=== PATIENT | male | born 1935 | race Caucasian/White ===

== ENCOUNTER 2016-12-28 21:52 | Outpatient (CLI) | payer MEDICARE, OTHER | END 2016-12-28 21:53 | disposition home or self-care (01) | DX: G47.33 Obstructive sleep apnea (adult) (pediatric) (principal); G47.61 Periodic limb movement disorder ==

== ENCOUNTER 2016-12-29 06:16 | Emergency (ER) | payer MEDICARE, OTHER ==
[2016-12-29] MEDS ORDERED: HYDROcod/ACETAM 5/325 MG TABLET PO STA (07:27)
[2016-12-29] MEDS ORDERED: HYDROcod/ACETAM 5/325 MG TABLET ONE (07:31)
== END 2016-12-29 08:20 | disposition home or self-care (01) ==
DX: S70.01XA Contusion of right hip, initial encounter (principal); W01.0XXA Fall on same level from slipping, tripping and stumbling without subsequent striking against object, initial encounter; Y92.000 Kitchen of unspecified non-institutional (private) residence as the place of occurrence of the external cause; E11.22 Type 2 diabetes mellitus with diabetic chronic kidney disease; I13.2 Hypertensive heart and chronic kidney disease with heart failure and with stage 5 chronic kidney disease, or end stage renal disease; N18.6 End stage renal disease; I50.9 Heart failure, unspecified; Z99.2 Dependence on renal dialysis; Z79.4 Long term (current) use of insulin; E03.9 Hypothyroidism, unspecified; G47.30 Sleep apnea, unspecified; Z95.2 Presence of prosthetic heart valve; Z95.1 Presence of aortocoronary bypass graft; Z87.891 Personal history of nicotine dependence; Z79.82 Long term (current) use of aspirin
CPT/HCPCS: 73502; 99283; 99284; A9270

== ENCOUNTER 2016-12-31 | Outpatient (CLI) | payer MEDICARE, OTHER | END 2016-12-31 02:29 | disposition critical access hospital (66) | DX: M25.551 Pain in right hip (principal) | CPT/HCPCS: A0425; A0429 ==

== ENCOUNTER 2016-12-31 02:40 | Emergency (ER) | payer MEDICARE, OTHER ==
[2016-12-31] MEDS ORDERED: HYDROcod/ACETAM 5/325 MG TABLET PO STA (07:04)
[2016-12-31] MEDS ORDERED: HYDROcod/ACETAM 5/325 MG TABLET ONE (07:08)
== END 2016-12-31 09:27 | disposition home or self-care (01) ==
DX: S72.111A Displaced fracture of greater trochanter of right femur, initial encounter for closed fracture (principal); Y92.000 Kitchen of unspecified non-institutional (private) residence as the place of occurrence of the external cause; W19.XXXA Unspecified fall, initial encounter; I11.0 Hypertensive heart disease with heart failure; I50.9 Heart failure, unspecified; E11.9 Type 2 diabetes mellitus without complications; Z79.82 Long term (current) use of aspirin; Z79.4 Long term (current) use of insulin; Z87.891 Personal history of nicotine dependence
CPT/HCPCS: 36415; 73502; 73700; 80053; 83690; 85025; 99283; 99284; A9270

== ENCOUNTER 2017-01-14 14:36 | Outpatient (CLI) | payer MEDICARE, OTHER | END 2017-01-14 14:37 | disposition home or self-care (01) | DX: G47.33 Obstructive sleep apnea (adult) (pediatric) (principal) | CPT/HCPCS: 99213; G0463 ==

== ENCOUNTER 2017-02-20 14:52 | Outpatient (CLI) | payer MEDICARE, OTHER | END 2017-02-20 14:53 | disposition critical access hospital (66) | DX: T42.4X4A Poisoning by benzodiazepines, undetermined, initial encounter (principal) | CPT/HCPCS: A0425; A0427 ==

== ENCOUNTER 2017-02-20 15:14 | Emergency (ER) | payer MEDICARE, OTHER ==
[2017-02-20] MEDS ORDERED: SODIUM CHLORIDE 0.9% 1,000 ML IV ONE (15:26)
== END 2017-02-20 20:15 | disposition home or self-care (01) ==
DX: G47.30 Sleep apnea, unspecified (principal); R53.83 Other fatigue; I11.0 Hypertensive heart disease with heart failure; I50.9 Heart failure, unspecified; E11.9 Type 2 diabetes mellitus without complications; Z79.4 Long term (current) use of insulin; Z95.1 Presence of aortocoronary bypass graft; Z95.2 Presence of prosthetic heart valve; Z79.82 Long term (current) use of aspirin; Z99.2 Dependence on renal dialysis; Z87.891 Personal history of nicotine dependence

== ENCOUNTER 2017-03-11 13:44 | Outpatient (CLI) | payer MEDICARE, OTHER | END 2017-03-11 13:45 | disposition home or self-care (01) | DX: G47.33 Obstructive sleep apnea (adult) (pediatric) (principal); F03.90 Unspecified dementia, unspecified severity, without behavioral disturbance, psychotic disturbance, mood disturbance, and anxiety | CPT/HCPCS: 99214; G0463 ==

== ENCOUNTER 2017-04-08 13:53 | Outpatient (CLI) | payer MEDICARE, OTHER | END 2017-04-08 13:54 | disposition home or self-care (01) | LOC: SC 13:53 | PROVIDERS: ATTEND Specialist | DX: G47.33 Obstructive sleep apnea (adult) (pediatric) (principal); F03.90 Unspecified dementia, unspecified severity, without behavioral disturbance, psychotic disturbance, mood disturbance, and anxiety; H91.90 Unspecified hearing loss, unspecified ear | CPT/HCPCS: 99214; G0463; 99212 ==

== ENCOUNTER 2017-04-24 14:56 | Outpatient (CLI) | payer MEDICARE, OTHER | END 2017-04-24 14:57 | disposition critical access hospital (66) | LOC: EMS 14:56 | PROVIDERS: ATTEND Surgery | DX: R41.0 Disorientation, unspecified (principal); R53.1 Weakness | CPT/HCPCS: A0425; A0427 ==

== ENCOUNTER 2017-04-24 15:16 | Emergency (ER) | payer MEDICARE, OTHER ==
--- NOTE | 2017-04-24 15:48 | ED Physician Documentation ---
PD HPI ALTERED MENTAL STATUS - Stated complaint Stated Complaint: WEAKNESS/ ALOC - Chief complaint Chief Complaint: Neuro - History obtained from History obtained from: Patient, Family, EMS - History of Present Illness Timing - onset: Today (he had dialysis today and then was weak and less interactive. EMS called to help him up and found BS low at 71. He perked up some with glucose. BP transiently low as well, but improved with some fluids. says he has been slightly more confused and weaker for several days. No noted injuries. Did not eat much today prior to dialysis but did get regular medications.) Timing - details: Abrupt onset, Now resolved (improved alertness enroute, but still feeling generally weak.) Quality / character: Less responsive, Confused Associated symptoms: General weakness. No: Fever, Headache, Dyspnea, Cough, NVD , Urinary sx, Focal weakness Contributing factors: Diabetic. No: Anticoagulated, Recent med change, Recent illness, Recent injury Basline status: Alert and oriented X 3, Walker Similar symptoms before: Diagnosis (with infections) Review of Systems Constitutional: denies: Fever, Chills Throat: denies: Sore throat Cardiac: denies: Chest pain / pressure Respiratory: denies: Cough GI: denies: Abdominal Pain, Nausea, Vomiting, Diarrhea : denies: Dysuria (produces small amount of urine, per ) Skin: denies: Rash, Lesions, Laceration (s) Musculoskeletal: reports: Extremity swelling (mild edema chronically) Neurologic: reports: Generalized weakness. denies: Focal weakness, Numbness, Near syncope Endocrine: reports: Easy bruising / bleeding PD PAST MEDICAL HISTORY - Past Medical History Cardiovascular: Congestive heart failure, Hypertension, Valve disorder Respiratory: Sleep apnea Neuro: None Endocrine/Autoimmune: Type 1 diabetes, HyPOthyroidism GI: Cholelithiasis : Frequency Musculoskeletal: Chronic back pain Other Past Medical History: restless leg syndrome - Past Surgical History Past Surgical History: Yes General: Cholecystectomy Ortho: Knee replacement Cardiovascular: CABG, Valve replacement, Fempop bypass - Present Medications Home Medications: Ambulatory Orders Medication Instructions Recorded Confirmed Aspirin [Adult Low Dose Aspirin EC] 81 mg PO PRN PRN 08/29/16 04/24/17 Finasteride 5 mg PO DAILY 08/29/16 04/24/17 Hydrocodone/Acetaminophen 1 tab PO Q6H PRN 08/29/16 04/24/17 [Hydrocodon-Acetaminoph 7.5-325] Insulin Glargine,Hum.rec.anlog 40 units SUBQ DAILY 08/29/16 04/24/17 [Lantus] Levothyroxine Sodium [Levoxyl] 175 mcg PO QDAC 08/29/16 04/24/17 Lorazepam 1 mg PO PRN PRN 08/29/16 04/24/17 Oxybutynin Chloride [Ditropan Xl] 5 mg PO DAILY 08/29/16 04/24/17 Pramipexole Di-HCl [Mirapex] 1 mg PO BID 08/29/16 04/24/17 Tramadol HCl 50 mg PO TID PRN 08/29/16 04/24/17 Magnesium 250 mg PO DAILY 09/09/16 04/24/17 Torsemide 40 mg PO DAILY 09/09/16 04/24/17 Metoprolol Succinate 12.5 mg PO BID 02/20/17 04/24/17 Insulin Aspart [NovoLOG] 2 - 10 unit SUBQ PRN PRN 04/24/17 04/24/17 Tamsulosin [Flomax] 0.4 mg PO DAILY 04/24/17 04/24/17 - Allergies Allergies/Adverse Reactions: Allergies Allergy/AdvReac Type Severity Reaction Status Date / Time No Known Drug Allergies Allergy Verified 02/20/17 15:43 - Social History Does the pt smoke?: No Smoking Status: Former smoker Does the pt drink ETOH?: No Does the pt have substance abuse?: No - Family History Family history: reports: Non contributory - Immunizations Immunizations are current?: Yes - POLST Patient has POLST: Yes PD ED PE NORMAL - Vitals Vital signs reviewed: Yes - General General: Alert and oriented X 3, No acute distress, Well developed/nourished, Other (slightly anxious/restless) - HEENT HEENT: Moist mucous membranes, Pharynx benign - Neck Neck: Supple, no meningeal sign, No adenopathy - Cardiac Cardiac: RRR, No murmur - Respiratory Respiratory: Clear bilaterally, Other (dialysis Broviac right chestwall without signs of skin infection) - Abdomen Abdomen: Normal bowel sounds, Soft, Non tender - Derm Derm: Normal color, Warm and dry - Extremities Extremities: No calf tenderness / cord, Other (1+ edema in both legs) - Neuro Neuro: No motor deficit, Normal speech Results - Vitals Vitals: Vital Signs - 24 hr 04/24/17 04/24/17 04/24/17 15:20 17:22 18:37 Temperature 36.1 C L 36.3 C L Heart Rate 69 80 78 Respiratory 18 20 16 Rate Blood Pressure 124/73 135/97 H 138/62 H O2 Saturation 96 96 96 04/24/17 19:47 Temperature 36.9 C Heart Rate 73 Respiratory 16 Rate Blood Pressure 115/70 O2 Saturation 95 Oxygen O2 Source [With Activity] 2L O2 via NC O2 Source [Without Activity] 2L O2 via NC O2 Source Room air - Labs Labs: Laboratory Tests 04/24/17 04/24/17 04/24/17 15:45 15:45 15:45 WBC 4.2 L RBC 3.65 L Hgb 12.7 L Hct 39.5 L MCV 108.3 H MCH 35.0 H MCHC 32.3 RDW 14.4 Plt Count 105 L MPV 9.7 Neut # 2.7 Lymph # 0.8 L [place] # 0.5 Eos # 0.1 Baso # 0.1 Absolute Nucleated RBC 0.00 Nucleated RBCs 0.1 Sodium 134 L Potassium 3.7 Chloride 99 L Carbon Dioxide 27 Anion Gap 8.0 BUN 20 Creatinine 1.6 H Estimated GFR (MDRD) 42 L Glucose 143 H Calcium 8.8 Magnesium 1.9 Total Bilirubin 1.7 H AST 44 H ALT 28 Alkaline Phosphatase 194 H B-Natriuretic Peptide 372 H Total Protein 7.4 Albumin 3.0 L Globulin 4.4 H Albumin/Globulin Ratio 0.7 L Lipase 40 - Rads (name of study) chest Radiology: Prelim report reviewed (no acute process) head CT Radiology: Prelim report reviewed (no acute changes) PD MEDICAL DECISION MAKING - ED course Complexity details: considered differential (had low sugar and transient low BP after dialysis. Had not eaten much this morning with regular meds. He is more alert here but says he has been a bit more confused overall the past several days. No signs of infections per se. He is dialysis patient but does produce some urine, per . He did not void here. ), d/w patient Departure - Departure Disposition: 01 Home, Self Care Clinical Impression: Hypoglycemia, Transient hypotension Altered mental status Qualifiers: Altered mental status type: somnolence Qualified Code(s): R40.0 - Somnolence Condition: Stable Record reviewed to determine appropriate education?: Yes Comments: Decrease Lantus dose to 30 units daily for now. Other meds as usual. Recheck with PMD in the next few days. Discharge Date/Time: 04/24/17 20:07
[2017-04-24 17:05] LABS: BASOPHILS # (AUTO) 0.1 10^3/uL (0.0-0.1); BASOPHILS % (AUTO) 2.2 %; EOSINOPHILS # (AUTO) 0.1 10^3/uL (0.0-0.7); EOSINOPHILS % (AUTO) 3.1 %; HCT - HEMATOCRIT 39.5 % (42.0-52.0); HGB - HEMOGLOBIN 12.7 g/dL (14.0-18.0); LYMPHOCYTES # (AUTO) 0.8 10^3/uL (1.5-3.5); LYMPHOCYTES % (AUTO) 18.2 %; MEAN CORPUSCULAR HGB CONC 32.3 g/dL (32.0-36.0); MEAN CORPUSCULAR VOLUME 108.3 fL (80.0-94.0); MEAN PLATELET VOLUME 9.7 fL (7.4-11.4); MONOCYTES # (AUTO) 0.5 10^3/uL (0.0-1.0); MONOCYTES % (AUTO) 12.3 %; NEUTROPHILS # (AUTO) 2.7 10^3/uL (1.5-6.6); NEUTROPHILS % (AUTO) 64.2 %; NUCLEATED RED BLOOD CELLS AUTO 0.1 /100WBC; RED BLOOD COUNT 3.65 10^6/uL (4.70-6.10); RED CELL DISTRIBUTION WIDTH 14.4 % (12.0-15.0); UNCORRECTED WHITE BLOOD COUNT 4.2 x10^3/uL; WHITE BLOOD COUNT 4.2 x10^3/uL (4.8-10.8)
[2017-04-24 17:13] LABS: ALBUMIN/GLOBULIN RATIO 0.7 (1.0-2.2); BILIRUBIN,TOTAL 1.7 mg/dL (0.2-1.0); CALCIUM 8.8 mg/dL (8.5-10.3); CREATININE 1.6 mg/dL (0.6-1.2); MAGNESIUM 1.9 mg/dL (1.7-2.8); POTASSIUM 3.7 mmol/L (3.5-5.0); TOTAL PROTEIN 7.4 g/dL (6.7-8.2)
--- NOTE | 2017-04-24 17:35 | XRAY Preliminary Report ---
Exam: XR Chest 1 View IMPRESSION: Stable radiographic appearance of the chest. There is cardiomegaly. No evidence of focal infiltrate or pneumothorax. [facility] SITE ID: [id number]
--- NOTE | 2017-04-24 17:36 | XRAY Report ---
EXAM: CHEST RADIOGRAPHY EXAM DATE: 04/24/2017 05:13 PM. CLINICAL HISTORY: Confused/ wheezing. COMPARISON: 02/20/2017. TECHNIQUE: 1 view. FINDINGS: Lungs/Pleura: Indistinct perihilar opacity is stable. No evidence of large effusion. No pneumothorax. Mediastinum: There is cardiomegaly. Dialysis catheter tip terminates in the upper right atrium. Other: None. IMPRESSION: Stable radiographic appearance of the chest. There is cardiomegaly. No evidence of focal infiltrate or pneumothorax. [facility] Referring Provider Line: [phone] SITE ID: [id number]
--- NOTE | 2017-04-24 18:08 | CT Preliminary Report ---
Exam: CT Head W/O IMPRESSION: No acute intracranial abnormality. [facility] SITE ID: [id number]
--- NOTE | 2017-04-24 18:10 | CT Report ---
EXAM: CT HEAD EXAM DATE: 04/24/2017 05:44 PM. CLINICAL HISTORY: Confused. COMPARISON: 02/20/2017 CT head. TECHNIQUE: Multiaxial CT images were obtained from the foramen magnum to the vertex. IV contrast: Non e. Reformats: Coronal. In accordance with CT protocol optimization, one or more of the following dose reduction techniques w ere utilized for this exam: automated exposure control, adjustment of mA and/or KV based on patient s ize, or use of iterative reconstructive technique. FINDINGS: Parenchyma: No evidence of infarction or hemorrhage. Patchy periventricular and subcortical low densi ty white matter changes compatible chronic small vessel ischemic disease. Extraaxial Spaces: Normal for age. No subdural or epidural collections identified. Ventricles: Normal in size and position. Sinuses: Imaged paranasal sinuses, orbits, and mastoids show no significant abnormality. Bones: No evidence of fracture or calvarial defect. Other: None. IMPRESSION: No acute intracranial abnormality. [facility] Referring Provider Line: [phone] SITE ID: [id number]
[2017-04-24] MEDS ORDERED: DEXTROSE 50% ABBOJECT 25 GM/50 ML SYRINGE IVP STA (18:57)
[2017-04-24] MEDS ORDERED: DEXTROSE 50% ABBOJECT 25 GM/50 ML SYRINGE ONE (19:00)
[2017-04-24 19:48] VITALS: BP 115/70
== END 2017-04-24 20:07 | disposition home or self-care (01) ==
LOC: EDUNIT# → ED 15:16
DX: E10.649 Type 1 diabetes mellitus with hypoglycemia without coma (principal); Z79.4 Long term (current) use of insulin; Z99.2 Dependence on renal dialysis; I11.0 Hypertensive heart disease with heart failure; I50.9 Heart failure, unspecified; R40.0 Somnolence; I95.9 Hypotension, unspecified; I25.10 Atherosclerotic heart disease of native coronary artery without angina pectoris; Z95.1 Presence of aortocoronary bypass graft; G47.30 Sleep apnea, unspecified; E03.9 Hypothyroidism, unspecified; Z79.82 Long term (current) use of aspirin; Z87.891 Personal history of nicotine dependence
CPT/HCPCS: 36415; 70450; 71010; 80053; 83690; 83735; 83880; 85025; 96374; 99284

== ENCOUNTER 2017-04-29 13:56 | Outpatient (CLI) | payer MEDICARE, OTHER | END 2017-04-29 13:57 | disposition home or self-care (01) | LOC: SC 13:56 | PROVIDERS: ATTEND Specialist | DX: G47.33 Obstructive sleep apnea (adult) (pediatric) (principal) | CPT/HCPCS: 99214; G0463; 99212 ==

== ENCOUNTER 2017-05-14 04:16 | Emergency (ER) | payer MEDICARE, OTHER ==
--- NOTE | 2017-05-14 04:55 | ED Physician Documentation ---
PD HPI LOWER EXT INJURY - Stated complaint Stated Complaint: GLF - Chief complaint Chief Complaint: Ext Problem - History obtained from History obtained from: Patient, Family - History of Present Illness PD HPI LOW EXT INJURY LOCATION: Right, Hip Type of injury: Fall Where injury occurred: Home Timing - onset: How many days ago (2) Timing - duration: Days (2) Timing - details: Abrupt onset, Still present Improved by: Rest, Immobilization Worsened by: Moving, Palpating Associated symptoms: Swelling. No: Weakness, Numbness, Tingling Contributing factors: No: Anticoagulated Similar symptoms before: Diagnosis (trochanter fracture with a fall) Recently seen: Other (The patient is undergoing dialysis routinely) - Additional information Additional information: 81 y/o male with ESRD on hemodialysis has been having problems with falls and he has fallen again about 2 days ago. He has some pain in the right hip and pain trying to bear weight. He is able to get himself out of bed but has a lot of pain with attempting to ambulate or get into the car. He did not want his to bring him to the hospital when this happened and he did get dialysis done yesterday. Tonight he awoke at about 2am with dull aching pain and he has asked his to bring him to the hospital. He lost balance and fell in the home 2 days ago. Review of Systems Constitutional: denies: Fever, Chills, Myalgias Eyes: denies: Decreased vision Ears: reports: Loss of hearing. denies: Ear pain Nose: denies: Rhinorrhea / runny nose, Congestion Throat: denies: Sore throat Cardiac: denies: Chest pain / pressure, Palpitations Respiratory: denies: Dyspnea, Cough GI: denies: Abdominal Pain, Nausea, Vomiting : denies: Dysuria, Frequency Skin: denies: Rash Musculoskeletal: reports: Extremity pain, Joint pain, Pain with weight bearing. denies: Neck pain, Back pain Neurologic: denies: Generalized weakness, Focal weakness, Numbness PD PAST MEDICAL HISTORY - Past Medical History Past Medical History: Yes Cardiovascular: Congestive heart failure, Hypertension, Valve disorder Respiratory: Sleep apnea Neuro: None Endocrine/Autoimmune: Type 1 diabetes, HyPOthyroidism GI: Cholelithiasis : Dialysis, Frequency Musculoskeletal: Chronic back pain - Past Surgical History Past Surgical History: Yes General: Cholecystectomy Ortho: Knee replacement Cardiovascular: CABG, Valve replacement, Fempop bypass - Present Medications Home Medications: Ambulatory Orders Medication Instructions Recorded Confirmed Aspirin [Adult Low Dose Aspirin EC] 81 mg PO PRN PRN 08/29/16 05/14/17 Finasteride 5 mg PO DAILY 08/29/16 05/14/17 Hydrocodone/Acetaminophen 1 tab PO Q6H PRN 08/29/16 05/14/17 [Hydrocodon-Acetaminoph 7.5-325] Insulin Glargine,Hum.rec.anlog 30 units SUBQ DAILY 08/29/16 05/14/17 [Lantus] Levothyroxine Sodium [Levoxyl] 175 mcg PO QDAC 08/29/16 05/14/17 Lorazepam 1 mg PO PRN PRN 08/29/16 05/14/17 Oxybutynin Chloride [Ditropan Xl] 5 mg PO DAILY 08/29/16 05/14/17 Pramipexole Di-HCl [Mirapex] 1 mg PO BID 08/29/16 05/14/17 Tramadol HCl 50 mg PO TID PRN 08/29/16 05/14/17 Magnesium 250 mg PO DAILY 09/09/16 05/14/17 Torsemide 40 mg PO DAILY 09/09/16 05/14/17 Metoprolol Succinate 12.5 mg PO BID 02/20/17 05/14/17 Insulin Aspart [NovoLOG] 2 - 10 unit SUBQ PRN PRN 04/24/17 05/14/17 Tamsulosin [Flomax] 0.4 mg PO DAILY 04/24/17 05/14/17 Oxymetazoline HCl [Afrin] 1 spray MONICA PRN PRN 05/14/17 05/14/17 - Allergies Allergies/Adverse Reactions: Allergies Allergy/AdvReac Type Severity Reaction Status Date / Time No Known Drug Allergies Allergy Verified 05/14/17 04:31 - Social History Does the pt smoke?: No Smoking Status: Former smoker Does the pt drink ETOH?: No Does the pt have substance abuse?: No - Immunizations Immunizations are current?: Yes - POLST Patient has POLST: Yes PD ED PE NORMAL - Vitals Vital signs reviewed: Yes (hypertensive mild ) - General General: Well developed/nourished, Other (The patient appears to be in pain with public relations associate tone and flat affect. ) - HEENT HEENT: Atraumatic - Neck Neck: Supple, no meningeal sign - Cardiac Cardiac: RRR, Other (2/6 holosystolic murmer at LSB) - Respiratory Respiratory: No respiratory distress, Clear bilaterally - Abdomen Abdomen: Soft, Non tender - Back Back: No CVA TTP, No spinal TTP - Derm Derm: Normal color, Warm and dry - Extremities Extremities: Other (There is swelling bilaterally worse on the right and there is venous stasis present bilaterally. He is able to move both legs through a ROM with the hip and he is able to life both legs off the table and it is easier for him to do this with the left leg. He has some tenderness over the trochanter on the right. ) - Neuro Neuro: No motor deficit, No sensory deficit, Normal speech - Psych Psych: Normal mood Results - Vitals Vitals: Vital Signs - 24 hr 05/14/17 05/14/17 04:28 05:54 Temperature 36.7 C 36.1 C L Heart Rate 70 73 Respiratory 18 18 Rate Blood Pressure 115/88 H 112/71 O2 Saturation 93 94 Oxygen O2 Source [With Activity] 2L O2 via NC O2 Source [Without Activity] 2L O2 via NC O2 Source Room air - Rads (name of study) Right hip with pelvis Radiology: Prelim report reviewed (Impression: 1. Fracture of right greater trochanter.), EMP read indepedently, See rad report PD MEDICAL DECISION MAKING - ED course Complexity details: reviewed old records, reviewed results, re-evaluated patient , considered differential, d/w patient, d/w family ED course: 81 y/o male on dialysis has had another fall at home about 2 days ago and he is having pain in the same right hip as he did when I saw him at the end of December with a greater trochanter fracture. I recommended custodial placement at that time and the patient has managed to stay at home with his caring for him. He is a fall risk and has chronic illness with failing health but he is able to get out of bed by himself and he is continent. His memory is slowly fading. He scores a 2+ on the Goodenough scale at best and after a longer discussion with the patient's she is not ready for custodial placement. His injury today is a further distraction of the greater trochanter fracture sustained in December. He is given a dose of tylenol for pain. Departure - Departure Disposition: 01 Home, Self Care Clinical Impression: Greater trochanter fracture Qualifiers: Encounter type: sequela Fracture type: closed Fracture alignment: displaced Laterality: right Qualified Code(s): S72.111S - Displaced fracture of greater trochanter of right femur, sequela Condition: Stable Instructions: ED Fx Lower Ext Follow-Up: Negrito Rod MD [Primary Care Provider] - Comments: This fracture appears to be an extension of the fracture sustained in December of this year and it will be painful to walk, stand or lay on the right side.
--- NOTE | 2017-05-14 05:36 | XRAY Preliminary Report ---
Exam: XR Hip w/Pelvis 2-3V RT IMPRESSION: 1. Fracture of the right greater trochanter. [facility] SITE ID: [id number]
--- NOTE | 2017-05-14 05:39 | XRAY Report ---
EXAM: RIGHT HIP AND PELVIS RADIOGRAPHY EXAM DATE: 05/14/2017 05:01 AM. HISTORY: Fall hip pain . COMPARISONS: 12/31/2016. TECHNIQUE: 1 view of the pelvis and 1 view of the hip. FINDINGS: Bones: Osteopenia. Fracture of the right greater trochanter. Joints: No dislocation. Joint spaces are fairly well preserved for age. Soft Tissues: Vascular calcifications. IMPRESSION: 1. Fracture of the right greater trochanter. [facility] Referring Provider Line: [phone] SITE ID: [id number]
[2017-05-14] MEDS ORDERED: ACETAMINOPHEN 500 MG TABLET PO STA (05:48)
[2017-05-14] MEDS ORDERED: ACETAMINOPHEN 500 MG TABLET PO ONE (05:49)
[2017-05-14 05:56] VITALS: BP 112/71
--- NOTE | 2017-05-14 07:10 | XRAY Preliminary Report ---
Exam: XR Foot 3 View RT IMPRESSION: No acute process or posttraumatic abnormality. 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 [facility] SITE ID: [id number]
--- NOTE | 2017-05-14 07:12 | XRAY Report ---
EXAM: RIGHT FOOT RADIOGRAPHY, 3 VIEWS EXAM DATE: 05/14/2017 06:55 AM. CLINICAL HISTORY: 81 year-old male post fall 2 days ago with persistent right foot pain and swelling. COMPARISON: None. TECHNIQUE: Frontal, lateral and oblique views. FINDINGS: Bones: Normal. No fractures or acute bone lesions. 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 Remaining joint spaces well-maintained. No s ubluxation or joint effusion. Soft Tissues: Surgical clips most suggestive of prior vascular surgery overlying the distal medial ti tao. No soft tissue swelling, soft tissue gas or foreign body. IMPRESSION: No acute process or posttraumatic abnormality. 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 [facility] Referring Provider Line: [phone] SITE ID: [id number]
== END 2017-05-14 06:50 | disposition home or self-care (01) ==
LOC: ED 04:16
DX: S72.111A Displaced fracture of greater trochanter of right femur, initial encounter for closed fracture (principal); W01.0XXA Fall on same level from slipping, tripping and stumbling without subsequent striking against object, initial encounter; Z91.81 History of falling; Y92.009 Unspecified place in unspecified non-institutional (private) residence as the place of occurrence of the external cause; E10.22 Type 1 diabetes mellitus with diabetic chronic kidney disease; I13.2 Hypertensive heart and chronic kidney disease with heart failure and with stage 5 chronic kidney disease, or end stage renal disease; I50.9 Heart failure, unspecified; N18.6 End stage renal disease; Z99.2 Dependence on renal dialysis; Z79.4 Long term (current) use of insulin; I87.8 Other specified disorders of veins; Z95.1 Presence of aortocoronary bypass graft; Z95.2 Presence of prosthetic heart valve; Z79.82 Long term (current) use of aspirin; Z87.891 Personal history of nicotine dependence
CPT/HCPCS: 73502; 73630; 99283; A9270

== ENCOUNTER 2017-06-07 14:11 | Outpatient (CLI) | payer MEDICARE, OTHER | END 2017-06-07 14:12 | disposition critical access hospital (66) | LOC: EMS 14:11 | PROVIDERS: ATTEND Surgery | DX: R29.810 Facial weakness (principal); R47.81 Slurred speech; R25.1 Tremor, unspecified | CPT/HCPCS: A0425; A0427 ==

== ENCOUNTER 2017-06-07 14:25 | Inpatient (IN) | payer MEDICARE, OTHER ==
[2017-06-07] MEDS ORDERED: DEXTROSE 50% ABBOJECT 25 GM/50 ML SYRINGE IVP STA (16:22)
[2017-06-07] MEDS ORDERED: DEXTROSE 50% ABBOJECT 25 GM/50 ML SYRINGE ONE (16:24)
[2017-06-07] MEDS ORDERED: ONDANSETRON 4 MG/2 ML VIAL IVP PRN (17:41)
[2017-06-07] MEDS ORDERED: SODIUM CHLORIDE FLUSH 0.9% 10 ML SYRINGE IVP PRN (17:41)
[2017-06-07] MEDS ORDERED: ACETAMINOPHEN 325 MG TABLET PO PRN (17:41)
[2017-06-07] MEDS ORDERED: traMADol 50 MG TABLET PO PRN (17:53)
[2017-06-07] MEDS ORDERED: ASPIRIN EC 81 MG TABLET PO PRN (17:53)
[2017-06-07] MEDS ORDERED: OXYMETAZOLINE NASAL SPRAY NAS PRN (17:53)
[2017-06-07] MEDS ORDERED: METOPROLOL SUCCINATE 25 MG TABLET PO SCH (21:00)
[2017-06-07] MEDS: HEPARIN 5,000 UNIT/ML VIAL SUBQ SCH (21:25)
[2017-06-07] MEDS: INSULIN ASPART 300 UNIT/3 ML PEN SUBQ SCH (21:26)
[2017-06-07] MEDS: SODIUM CHLORIDE FLUSH 0.9% 10 ML SYRINGE IVP SCH (21:28)
[2017-06-07] MEDS: PRAMIPEXOLE 0.25 MG TABLET PO SCH (21:28)
[2017-06-08] MEDS: PRAMIPEXOLE 0.25 MG TABLET PO SCH ×2 (06:21→13:25)
[2017-06-08] MEDS: SODIUM CHLORIDE FLUSH 0.9% 10 ML SYRINGE IVP SCH ×2 (06:21→13:30)
[2017-06-08] MEDS ORDERED: LEVOTHYROXINE 75 MCG TABLET PO SCH (07:00)
[2017-06-08] MEDS ORDERED: LEVOTHYROXINE 100 MCG TABLET PO SCH (07:00)
[2017-06-08] MEDS: LACTULOSE 10 GM /15 ML UDC PO SCH ×2 (08:13→08:14)
[2017-06-08] MEDS: HEPARIN 5,000 UNIT/ML VIAL SUBQ SCH (08:14)
[2017-06-08] MEDS ORDERED: FAMOTIDINE 20 MG TABLET PO SCH (09:00)
[2017-06-08] MEDS ORDERED: METOPROLOL SUCCINATE 25 MG TABLET PO SCH (09:00)
[2017-06-08] MEDS ORDERED: OXYBUTYNIN 5MG TABLET PO SCH (09:00)
[2017-06-08] MEDS ORDERED: TORSEMIDE 20 MG TABLET PO SCH ×2 (09:00)
[2017-06-08] MEDS ORDERED: FINASTERIDE 5 MG TABLET PO SCH (09:00)
[2017-06-08] MEDS ORDERED: TAMSULOSIN 0.4 MG CAPSULE PO SCH (09:00)
[2017-06-08] MEDS ORDERED: ASPIRIN CHEW 81 MG TABLET PO SCH (09:00)
[2017-06-08] MEDS ORDERED: ASPIRIN 325 MG TABLET PO SCH (09:00)
[2017-06-08] MEDS ORDERED: POLYETHYLENE GLYCOL 3350 17 GM PACKET PO SCH (09:00)
[2017-06-08] MEDS: INSULIN ASPART 300 UNIT/3 ML PEN SUBQ SCH ×2 (09:04→11:30)
== END 2017-06-08 15:25 | disposition home or self-care (01) | DRG 947 ==
DX: R41.82 Altered mental status, unspecified (principal); I50.33 Acute on chronic diastolic (congestive) heart failure; N18.6 End stage renal disease; I13.2 Hypertensive heart and chronic kidney disease with heart failure and with stage 5 chronic kidney disease, or end stage renal disease; E10.22 Type 1 diabetes mellitus with diabetic chronic kidney disease; I50.9 Heart failure, unspecified; E11.22 Type 2 diabetes mellitus with diabetic chronic kidney disease; E11.649 Type 2 diabetes mellitus with hypoglycemia without coma; Z99.2 Dependence on renal dialysis; G47.33 Obstructive sleep apnea (adult) (pediatric); G89.29 Other chronic pain; M54.9 Dorsalgia, unspecified; J44.9 Chronic obstructive pulmonary disease, unspecified; Z95.2 Presence of prosthetic heart valve; F03.90 Unspecified dementia, unspecified severity, without behavioral disturbance, psychotic disturbance, mood disturbance, and anxiety; Z79.82 Long term (current) use of aspirin; Z86.73 Personal history of transient ischemic attack (TIA), and cerebral infarction without residual deficits; E03.9 Hypothyroidism, unspecified; R33.9 Retention of urine, unspecified; Z95.3 Presence of xenogenic heart valve; Z87.891 Personal history of nicotine dependence; Z95.1 Presence of aortocoronary bypass graft; Z95.828 Presence of other vascular implants and grafts; Z79.4 Long term (current) use of insulin; Z79.891 Long term (current) use of opiate analgesic; Z79.899 Other long term (current) drug therapy

== ENCOUNTER 2017-06-11 08:17 | Outpatient (CLI) | payer MEDICARE, OTHER | END 2017-06-11 08:18 | disposition critical access hospital (66) | LOC: EMS 08:17 | PROVIDERS: ATTEND Surgery | DX: R53.1 Weakness (principal); R41.0 Disorientation, unspecified | CPT/HCPCS: A0425; A0429 ==

== ENCOUNTER 2017-06-11 08:30 | Emergency (ER) | payer MEDICARE, OTHER ==
--- NOTE | 2017-06-11 08:41 | ED Physician Documentation ---
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 He has mounting disabilities and his is no longer able to care for him at home. Yesterday he had a hard time getting to dialysis and even harder time getting home from dialysis. He was not able to stand or walk getting out of the car yesterday when he got home. He eventually scooted into the house. This morning his found him on the floor confused and she was not able to get him up. She states that she believes he has some confusion in the mornings related to not using his CPAP. He had a fall in May with the fracture and he was able to manage at home until recently. He was admitted over night here last week with weakness. Review of Systems Unable to obtain: Confused Constitutional: denies: Fever Eyes: denies: Decreased vision Ears: denies: Ear pain Nose: denies: Congestion Throat: denies: Sore throat Cardiac: denies: Chest pain / pressure Respiratory: denies: Dyspnea, Cough GI: reports: Vomiting (yesterday with taking hydrocodone on an empty stomach) : denies: Dysuria Skin: denies: Rash, Lesions Musculoskeletal: reports: Extremity pain, Pain with weight bearing. denies: Neck pain, Back pain Neurologic: reports: Generalized weakness. denies: Focal weakness, Numbness PD PAST MEDICAL HISTORY - Past Medical History Cardiovascular: Congestive heart failure, Hypertension, Valve disorder Respiratory: Sleep apnea Neuro: None Endocrine/Autoimmune: Type 2 diabetes, HyPOthyroidism GI: Cholelithiasis : Dialysis, Frequency Musculoskeletal: Chronic back pain - Past Surgical History Past Surgical History: Yes General: Cholecystectomy Ortho: Knee replacement Cardiovascular: CABG, Valve replacement, Fempop bypass - Present Medications Home Medications: Ambulatory Orders Medication Instructions Recorded Confirmed Finasteride 5 mg PO QPM 08/29/16 06/11/17 Hydrocodone/Acetaminophen 0.5 - 1 tab PO BID PRN 08/29/16 06/11/17 [Hydrocodon-Acetaminoph 7.5-325] Levothyroxine Sodium [Levoxyl] 175 mcg PO QDAC 08/29/16 06/11/17 Oxybutynin Chloride [Ditropan Xl] 5 mg PO DAILY 08/29/16 06/11/17 Pramipexole Di-HCl [Mirapex] 1 mg PO BID 08/29/16 06/11/17 Tramadol HCl 50 mg PO TID PRN 08/29/16 06/11/17 Magnesium 250 mg PO DAILY 09/09/16 06/11/17 Torsemide 40 mg PO DAILY 09/09/16 06/11/17 Tamsulosin [Flomax] 0.4 mg PO DAILY 04/24/17 06/11/17 Oxymetazoline HCl [Afrin] 1 spray MONICA PRN PRN 05/14/17 06/11/17 Acetaminophen [Tylenol Extra 500 - 1,000 mg PO Q4H PRN 06/08/17 06/11/17 Strength] Insulin Aspart [NovoLOG] 1 - 5 unit SUBQ 06/08/17 06/11/17 0800,1200,1700,2100 pen Metoprolol Tartrate 12.5 mg PO BID 06/08/17 06/11/17 Insulin Glargine,Hum.rec.anlog 30 units SQ DAILY 06/11/17 06/11/17 [Lantus Solostar] Tamsulosin [Flomax] 0.4 mg PO DAILY 06/11/17 06/11/17 - Allergies Allergies/Adverse Reactions: Allergies Allergy/AdvReac Type Severity Reaction Status Date / Time No Known Drug Allergies Allergy Verified 05/14/17 04:31 - Social History Does the pt smoke?: No Smoking Status: Former smoker Does the pt drink ETOH?: No Does the pt have substance abuse?: No - Immunizations Immunizations are current?: Yes - POLST Patient has POLST: Yes PD ED PE NORMAL - Vitals Vital signs reviewed: Yes (normal ) - General General: No acute distress, Well developed/nourished, Other (The patient is disoriented knows his name but that is about it. ) - HEENT HEENT: Atraumatic, PERRL, EOMI, Other (hearing aids present bilaterally ) - Neck Neck: Supple, no meningeal sign - Cardiac Cardiac: RRR, Other (2/6 holosystolic murmer at LSB radiating into the axilla consistent with mitral valve reflux) - Respiratory Respiratory: No respiratory distress, Other (light rhonchi in the left base. ) - Abdomen Abdomen: Soft, Non tender - Back Back: No CVA TTP, No spinal TTP - Derm Derm: Normal color, Warm and dry, No rash - Extremities Extremities: No deformity, No edema - Neuro Neuro: No motor deficit, No sensory deficit Results - Vitals Vitals: Vital Signs - 24 hr 06/11/17 06/11/17 06/11/17 08:31 09:19 10:49 Temperature 36.4 C L 36.5 C Heart Rate 83 85 86 Respiratory 18 18 20 Rate Blood Pressure 125/66 126/68 129/72 O2 Saturation 96 96 96 06/11/17 06/11/17 12:10 13:22 Temperature Heart Rate 74 84 Respiratory 18 18 Rate Blood Pressure 132/82 H 120/62 O2 Saturation 95 96 Oxygen O2 Source [] 2L O2 via NC O2 Source [] 2L O2 via NC O2 Source Room air - Labs Labs: Laboratory Tests 06/11/17 06/11/17 06/11/17 09:12 09:12 09:12 WBC 5.4 RBC 3.67 L Hgb 12.7 L Hct 37.9 L MCV 103.5 H MCH 34.6 H MCHC 33.5 RDW 13.9 Plt Count 120 L MPV 8.9 Neut # 3.7 Lymph # 0.9 L [place] # 0.5 Eos # 0.3 Baso # 0.0 Absolute Nucleated RBC 0.00 Nucleated RBCs 0.0 D-Dimer Sodium 137 Potassium 3.8 Chloride 102 Carbon Dioxide 25 Anion Gap 10.0 BUN 32 H Creatinine 2.5 H Estimated GFR (MDRD) 25 L Glucose 115 H Calcium 9.3 Total Bilirubin 1.6 H AST 35 ALT 20 Alkaline Phosphatase 204 H Troponin I 0.05 Total Protein 7.3 Albumin 2.8 L Globulin 4.5 H Albumin/Globulin Ratio 0.6 L Lipase 26 06/11/17 09:12 WBC RBC Hgb Hct MCV MCH MCHC RDW Plt Count MPV Neut # Lymph # [place] # Eos # Baso # Absolute Nucleated RBC Nucleated RBCs D-Dimer > 1050.0 H Sodium Potassium Chloride Carbon Dioxide Anion Gap BUN Creatinine Estimated GFR (MDRD) Glucose Calcium Total Bilirubin AST ALT Alkaline Phosphatase Troponin I Total Protein Albumin Globulin Albumin/Globulin Ratio Lipase - Rads (name of study) 2 view chest Radiology: Prelim report reviewed (Impression: 1. Mild to moderately low lung volumes.2. Patchy opacity at the left lung base which may represent infiltrate such as pneumonia.3. Cardiomegaly.4. Calcified or ossified foci within the soft tissues at the right lateral chest wall no change since the previous study. ), EMP read indepedently, See rad report CT chest angiogram Radiology: Prelim report reviewed (Impression: 1. No evidence of pulmonary emboli.2. Moderate cardiomegaly with mild CHF. Tiny bilateral pleural effusions.3. Elevated right sided cardiac pressures.4. Chronic lung disease.5. Subacute fracture posterior lateral aspect right sixth rib.), EMP read indepedently, See rad report Procedures - IVC sono (time) 0843 Bedside IVC sono: IVC measures (cm) (1.71), IVC collapsed c insp (cm) (1.09), Euvolemia PD MEDICAL DECISION MAKING - ED course Complexity details: reviewed old records, reviewed results, re-evaluated patient , considered differential, d/w patient, d/w family ED course: 81 y/o male with ESRD on dialysis and with advancing dementia has become a fall risk, has now broken a hip and pelvis with a trochanter fracture and is now failing getting out of bed by himself. He is incontinent and has failing health on top of chronic illness. His has been caring for him at home, taking him to dialysis and getting him in and out of the car. She has resisted assisted placement but is now at her wits end. She notes that he refuses to use his CPAP at home and she finds he is confused in the morning and it takes about 3 hours for him to wake up in the morning and be communicative. We were witness to this today. He arrived confused and this confusion improved during his stay here. On our work up today it is noted that he has some rhonchi in the left base and an infiltrate on his CXR in the left base. Ultimately he needs admission to the hospital for pneumonia and placement to heal from the pelvic fracture. Dr. Castillo (hospitalist at [facility]) is consulted in the case and requests we do D-dimer and pulmonary angiogram prior to transfer. Evidence for pneumonia appear lacking on the CT or at least underwhelming. Departure - Departure Disposition: 02 Transfer Acute Care Hosp Clinical Impression: ESRD (end stage renal disease) on dialysis Altered mental status Qualifiers: Altered mental status type: transient alteration of awareness Qualified Code(s) : R40.4 - Transient alteration of awareness Pneumonia Qualifiers: Pneumonia type: due to unspecified organism Laterality: left Lung location: lower lobe of lung Qualified Code(s): J18.1 - Lobar pneumonia, unspecified organism
--- NOTE | 2017-06-11 09:19 | XRAY Preliminary Report ---
Exam: XR Chest 2 View PA/LAT IMPRESSION: 1. Mild to moderately low lung volumes. 2. Patchy opacity at the left lung base which may represent infiltrate such as pneumonia. 3. Cardiomegaly. 4. Calcified or ossified foci within the soft tissues at right lateral chest wall. No change since previous study. [facility] SITE ID: [id number]
--- NOTE | 2017-06-11 09:22 | XRAY Report ---
EXAM: CHEST RADIOGRAPHY EXAM DATE: 06/11/2017 09:04 AM. CLINICAL HISTORY: Confusion COMPARISON: Chest radiography from 06/07/2017. TECHNIQUE: 2 views. FINDINGS: Lungs/Pleura: Lung volumes are mild to moderately low. No pneumothorax or pleural effusion. Patchy op acity at the left lung base. Mediastinum: Midline sternal wires and mediastinal surgical clips. The aorta is partially calcified. Heart is enlarged. Dual lumen catheter tip is at the cavoatrial junction region. Other: There are calcified or ossified foci within the soft tissues at the right lateral chest wall. IMPRESSION: 1. Mild to moderately low lung volumes. 2. Patchy opacity at the left lung base which may represent infiltrate such as pneumonia. 3. Cardiomegaly. 4. Calcified or ossified foci within the soft tissues at right lateral chest wall. No change since previous study. [facility] Referring Provider Line: [phone] SITE ID: [id number]
[2017-06-11 09:25] LABS: BASOPHILS % (AUTO) 0.5 %; EOSINOPHILS # (AUTO) 0.3 10^3/uL (0.0-0.7); EOSINOPHILS % (AUTO) 5.4 %; HCT - HEMATOCRIT 37.9 % (42.0-52.0); HGB - HEMOGLOBIN 12.7 g/dL (14.0-18.0); LYMPHOCYTES # (AUTO) 0.9 10^3/uL (1.5-3.5); LYMPHOCYTES % (AUTO) 16.5 %; MEAN CORPUSCULAR HEMOGLOBIN 34.6 pg (27.0-31.0); MEAN CORPUSCULAR HGB CONC 33.5 g/dL (32.0-36.0); MEAN CORPUSCULAR VOLUME 103.5 fL (80.0-94.0); MEAN PLATELET VOLUME 8.9 fL (7.4-11.4); MONOCYTES # (AUTO) 0.5 10^3/uL (0.0-1.0); MONOCYTES % (AUTO) 9.2 %; NEUTROPHILS # (AUTO) 3.7 10^3/uL (1.5-6.6); NEUTROPHILS % (AUTO) 68.4 %; RED BLOOD COUNT 3.67 10^6/uL (4.70-6.10); RED CELL DISTRIBUTION WIDTH 13.9 % (12.0-15.0); UNCORRECTED WHITE BLOOD COUNT 5.4 x10^3/uL; WHITE BLOOD COUNT 5.4 x10^3/uL (4.8-10.8)
[2017-06-11 09:35] LABS: ALBUMIN/GLOBULIN RATIO 0.6 (1.0-2.2); BILIRUBIN,TOTAL 1.6 mg/dL (0.2-1.0); CALCIUM 9.3 mg/dL (8.5-10.3); CREATININE 2.5 mg/dL (0.6-1.2); POTASSIUM 3.8 mmol/L (3.5-5.0); TOTAL PROTEIN 7.3 g/dL (6.7-8.2)
[2017-06-11] MEDS ORDERED: HYDROcod/ACETAM 5/325 MG TABLET PO STA (10:46)
[2017-06-11] MEDS ORDERED: HYDROcod/ACETAM 5/325 MG TABLET ONE (10:47)
[2017-06-11] MEDS ORDERED: cefTRIAXone 1 GM in SODIUM CHLORIDE 0.9% MINIBAG 100 ML IV STA (11:59)
[2017-06-11] MEDS ORDERED: cefTRIAXone 1 GM VIAL ONE (12:00)
[2017-06-11] MEDS ORDERED: AZITHROMYCIN INJ 500 MG in SODIUM CHLORIDE 0.9% 250 ML IV STA (12:00)
[2017-06-11] MEDS ORDERED: IOPAMIDOL-300 100 ML VIAL IVP ONE (13:18)
--- NOTE | 2017-06-11 13:42 | CT Preliminary Report ---
Exam: CT Chest Angio (PE) IMPRESSION: 1. No evidence of pulmonary emboli. 2. Moderate cardiomegaly with mild CHF. Tiny bilateral pleural effusions. 3. Elevated right-sided cardiac pressures. 4. Chronic lung disease. 5. Subacute fracture posterior lateral aspect right sixth rib. [facility] SITE ID: [id number]
--- NOTE | 2017-06-11 13:53 | CT Report ---
EXAM: CT ANGIOGRAM CHEST EXAM DATE: 06/11/2017 01:02 PM. CLINICAL HISTORY: Chest infiltrate. Confusion. Elevated d-dimer. COMPARISON: None. TECHNIQUE: Routine helical imaging was performed through the chest in the pulmonary arterial phase. I V Contrast: 80 mL Isovue 300. Reconstructions: Coronal 3-D MIP reconstructions.Sagittal and coronal. In accordance with CT protocol optimization, one or more of the following dose reduction techniques w ere utilized for this exam: automated exposure control, adjustment of mA and/or KV based on patient s ize, or use of iterative reconstructive technique. FINDINGS: Pulmonary Arteries: Diagnostic quality: Adequate through the segmental arteries. No evidence for acute or chronic pulmona ry emboli. Right to left ventricular ratio greater than 1. Flattening of the interventricular septum. Reflux int o the IVC as well as into both internal jugular veins. Lungs/Pleura: Mild vascular congestion. Chronic lung disease. Tiny bilateral pleural effusions. No focal consolidation nor pneumothorax. Mediastinum: Moderate cardiomegaly. No significant pericardial fluid. Right jugular line tip at the cavoatrial junction. Prior sternotomy. Thoracic Aorta: Unremarkable. Upper Abdomen: Cholecystectomy. Other: Healing fracture posterior lateral aspect right sixth rib. IMPRESSION: 1. No evidence of pulmonary emboli. 2. Moderate cardiomegaly with mild CHF. Tiny bilateral pleural effusions. 3. Elevated right-sided cardiac pressures. 4. Chronic lung disease. 5. Subacute fracture posterior lateral aspect right sixth rib. [facility] Referring Provider Line: [phone] SITE ID: [id number]
[2017-06-11 15:13] VITALS: BP 111/72
== END 2017-06-11 15:32 | disposition short-term general hospital (02) ==
LOC: EDUNIT# → ED 08:30
DX: I12.0 Hypertensive chronic kidney disease with stage 5 chronic kidney disease or end stage renal disease (principal); E11.22 Type 2 diabetes mellitus with diabetic chronic kidney disease; N18.6 End stage renal disease; R53.83 Other fatigue; R40.4 Transient alteration of awareness; J18.9 Pneumonia, unspecified organism; F03.90 Unspecified dementia, unspecified severity, without behavioral disturbance, psychotic disturbance, mood disturbance, and anxiety; Z99.2 Dependence on renal dialysis; Z79.4 Long term (current) use of insulin; Z96.659 Presence of unspecified artificial knee joint; Z95.2 Presence of prosthetic heart valve; Z95.1 Presence of aortocoronary bypass graft; Z87.891 Personal history of nicotine dependence
CPT/HCPCS: 36415; 71020; 71275; 80053; 83690; 84484; 85025; 85379; 96374; 96375; 99285; A9270; Q9967

== ENCOUNTER 2017-06-11 15:31 | Outpatient (CLI) | payer MEDICARE, OTHER | END 2017-06-11 15:32 | disposition short-term general hospital (02) | LOC: EMS 15:31 | PROVIDERS: ATTEND Surgery | DX: N18.6 End stage renal disease (principal) | CPT/HCPCS: A0425; A0426 ==

== ENCOUNTER 2017-06-28 01:36 | Outpatient (CLI) | payer MEDICARE, OTHER | END 2017-06-28 01:37 | disposition critical access hospital (66) | LOC: EMS 01:36 | PROVIDERS: ATTEND Surgery | DX: R58 Hemorrhage, not elsewhere classified (principal) | CPT/HCPCS: A0425; A0429 ==

== ENCOUNTER 2017-06-28 01:47 | Emergency (ER) | payer MEDICARE, OTHER ==
--- NOTE | 2017-06-28 02:58 | XRAY Preliminary Report ---
Exam: XR Chest 2 View PA/LAT IMPRESSION: Moderate CHF pattern. [facility] SITE ID: [id number]
--- NOTE | 2017-06-28 03:00 | XRAY Report ---
EXAM: CHEST RADIOGRAPHY EXAM DATE: 06/28/2017 02:14 AM. CLINICAL HISTORY: Remove dialysis catheter tonight. COMPARISON: CT 06/11/2017 TECHNIQUE: 2 views. A total of 3 exposures are provided for review. FINDINGS: Lungs/Pleura: Mild peripheral septal thickening. No focal opacities evident. No pleural effusion. No pneumothorax. Normal volumes. Mediastinum: Marked enlargement of the cardiac silhouette and pulmonary vascular congestion. Prior me jenae sternotomy. Other: None. IMPRESSION: Moderate CHF pattern. [facility] Referring Provider Line: [phone] SITE ID: [id number]
--- NOTE | 2017-06-28 03:00 | ED Physician Documentation ---
PD HPI WOUND RECHECK - Stated complaint Stated Complaint: REMOVED DIALYSIS PORT - Chief complaint Chief Complaint: General - Histroy obtained from History obtained from: Patient, Family, EMS - History of Present Illness Location: Chest Timing - onset: How many minutes ago Similar symptoms before: Has not had sx before Recently seen: Not recently seen - Additional information Additional information: Patient is a 81 year old male sent if [facility] after pulling out his dialysis catheter. According to patient, family and ems patient is esrd but was tired of dialysis and had a poor prognosis. the patient and family decided to stop dialysis and make the patient comfort measures. the catheter was supposed to be removed next week but the patient pulled it out tonight so [facility] sent the patient in for evaluation. Review of Systems Unable to obtain: Confused, Dementia PD PAST MEDICAL HISTORY - Past Medical History Cardiovascular: Congestive heart failure, Hypertension, Valve disorder Respiratory: Sleep apnea Neuro: None Endocrine/Autoimmune: Type 2 diabetes, HyPOthyroidism GI: Cholelithiasis : Dialysis, Frequency Musculoskeletal: Chronic back pain - Past Surgical History Past Surgical History: Yes General: Cholecystectomy Ortho: Knee replacement Cardiovascular: CABG, Valve replacement, Fempop bypass - Present Medications Home Medications: Ambulatory Orders Medication Instructions Recorded Confirmed Finasteride 5 mg PO QPM 08/29/16 06/11/17 Hydrocodone/Acetaminophen 0.5 - 1 tab PO BID PRN 08/29/16 06/11/17 [Hydrocodon-Acetaminoph 7.5-325] Levothyroxine Sodium [Levoxyl] 175 mcg PO QDAC 08/29/16 06/11/17 Oxybutynin Chloride [Ditropan Xl] 5 mg PO DAILY 08/29/16 06/11/17 Pramipexole Di-HCl [Mirapex] 1 mg PO BID 08/29/16 06/11/17 Tramadol HCl 50 mg PO TID PRN 08/29/16 06/11/17 Magnesium 250 mg PO DAILY 09/09/16 06/11/17 Torsemide 40 mg PO DAILY 09/09/16 06/11/17 Tamsulosin [Flomax] 0.4 mg PO DAILY 04/24/17 06/11/17 Oxymetazoline HCl [Afrin] 1 spray MONICA PRN PRN 05/14/17 06/11/17 Acetaminophen [Tylenol Extra 500 - 1,000 mg PO Q4H PRN 06/08/17 06/11/17 Strength] Insulin Aspart [NovoLOG] 1 - 5 unit SUBQ 06/08/17 06/11/17 0800,1200,1700,2100 pen Metoprolol Tartrate 12.5 mg PO BID 06/08/17 06/11/17 Insulin Glargine,Hum.rec.anlog 30 units SQ DAILY 06/11/17 06/11/17 [Lantus Solostar] Tamsulosin [Flomax] 0.4 mg PO DAILY 06/11/17 06/11/17 - Allergies Allergies/Adverse Reactions: Allergies Allergy/AdvReac Type Severity Reaction Status Date / Time No Known Drug Allergies Allergy Verified 05/14/17 04:31 - Social History Does the pt smoke?: No Smoking Status: Former smoker Does the pt drink ETOH?: No Does the pt have substance abuse?: No - Immunizations Immunizations are current?: Yes - POLST Patient has POLST: Yes PD ED PE NORMAL - Vitals Vital signs reviewed: Yes - General General: Alert and oriented X 3, No acute distress - HEENT HEENT: Atraumatic, PERRL - Cardiac Cardiac: RRR, No murmur - Respiratory Respiratory: No respiratory distress - Abdomen Abdomen: Soft - Derm Derm: Normal color, Warm and dry - Extremities Extremities: No deformity - Neuro Neuro: Alert and oriented X 3, No motor deficit, No sensory deficit - Psych Psych: Normal mood PD ED PE EXPANDED - Cardiac Cardiac: Chest wall TTP (no active bleeding from prior subclavian dialysis catheter site) Results - Vitals Vitals: Vital Signs - 24 hr 06/28/17 06/28/17 06/28/17 01:56 03:11 05:32 Temperature 36.1 C L Heart Rate 73 74 74 Respiratory 16 16 16 Rate Blood Pressure 116/63 106/70 110/69 O2 Saturation 95 96 94 Oxygen O2 Source [With Activity] 2L O2 via NC O2 Source [Without Activity] 2L O2 via NC O2 Source Room air - Rads (name of study) chest x-ray Radiology: Final report received (no acute abnormality) PD MEDICAL DECISION MAKING - ED course Complexity details: reviewed old records, reviewed results, re-evaluated patient , d/w patient, d/w family ED course: Patient was seen and examined at bedside. patient's wound had stopped bleeding. A discussion was had with the who stated that the patient was dni/dnr and did indeed not want dialysis. x ray was performed and was within normal limits. Patient required no further work up and was stable for discharge with outpatient follow up. Departure - Departure Disposition: 01 Home, Self Care Clinical Impression: Dialysis complication Condition: Good Instructions: ED Wound Check Post Op No Infec Follow-Up: primary,care provider [Other] - As Needed Comments: please keep the wound clean and dry. You should monitor for bleeding and apply pressure for any bleeding. You may return to the emergency department at any time for new, worsening or uncontrollable symptoms.
[2017-06-28 05:34] VITALS: BP 110/69
== END 2017-06-28 08:34 | disposition home or self-care (01) ==
LOC: EDUNIT# → ED 01:47
DX: T82.898A Other specified complication of vascular prosthetic devices, implants and grafts, initial encounter (principal); E11.22 Type 2 diabetes mellitus with diabetic chronic kidney disease; I12.0 Hypertensive chronic kidney disease with stage 5 chronic kidney disease or end stage renal disease; N18.6 End stage renal disease; Z99.2 Dependence on renal dialysis; Z79.4 Long term (current) use of insulin; E03.9 Hypothyroidism, unspecified; G47.30 Sleep apnea, unspecified; I25.10 Atherosclerotic heart disease of native coronary artery without angina pectoris; Z95.1 Presence of aortocoronary bypass graft; Z95.2 Presence of prosthetic heart valve; Z87.891 Personal history of nicotine dependence
CPT/HCPCS: 71020; 99283

== ENCOUNTER 2017-07-22 21:55 | Outpatient (CLI) | payer MEDICARE, OTHER ==
[2017-07-22 23:12] LABS: CREATININE 3.7 mg/dL (0.6-1.2)
[2017-07-22 23:15] LABS: CALCIUM 9.1 mg/dL (8.5-10.3); POTASSIUM 4.6 mmol/L (3.5-5.0)
== END 2017-07-22 21:56 | disposition home or self-care (01) ==
LOC: LAB.R 21:55
DX: N18.6 End stage renal disease (principal)
CPT/HCPCS: 80048

== ENCOUNTER 2017-07-23 02:16 | Outpatient (CLI) | payer MEDICARE, OTHER | END 2017-07-23 02:17 | disposition EMS.NT | LOC: EMS 02:16 | PROVIDERS: ATTEND Surgery | DX: Z03.89 Encounter for observation for other suspected diseases and conditions ruled out (principal) ==

== ENCOUNTER 2017-07-28 04:40 | Outpatient (CLI) | payer MEDICARE, OTHER | END 2017-07-28 04:41 | disposition critical access hospital (66) | LOC: EMS 04:40 | PROVIDERS: ATTEND Surgery | DX: S11.91XA Laceration without foreign body of unspecified part of neck, initial encounter (principal); S61.512A Laceration without foreign body of left wrist, initial encounter; S61.511A Laceration without foreign body of right wrist, initial encounter; W45.8XXA Other foreign body or object entering through skin, initial encounter; Y92.009 Unspecified place in unspecified non-institutional (private) residence as the place of occurrence of the external cause | CPT/HCPCS: A0425; A0429 ==

== ENCOUNTER 2017-07-28 04:51 | Emergency (ER) | payer MEDICARE, OTHER ==
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
[2017-07-28 05:22] LABS: BASOPHILS # (AUTO) 0.1 10^3/uL (0.0-0.1); BASOPHILS % (AUTO) 1.1 %; EOSINOPHILS # (AUTO) 0.2 10^3/uL (0.0-0.7); EOSINOPHILS % (AUTO) 3.5 %; HCT - HEMATOCRIT 39.3 % (42.0-52.0); HGB - HEMOGLOBIN 13.1 g/dL (14.0-18.0); LYMPHOCYTES # (AUTO) 0.9 10^3/uL (1.5-3.5); LYMPHOCYTES % (AUTO) 14.8 %; MEAN CORPUSCULAR HEMOGLOBIN 34.7 pg (27.0-31.0); MEAN CORPUSCULAR HGB CONC 33.3 g/dL (32.0-36.0); MEAN CORPUSCULAR VOLUME 104.2 fL (80.0-94.0); MEAN PLATELET VOLUME 8.6 fL (7.4-11.4); MONOCYTES # (AUTO) 0.6 10^3/uL (0.0-1.0); MONOCYTES % (AUTO) 9.1 %; NEUTROPHILS # (AUTO) 4.4 10^3/uL (1.5-6.6); NEUTROPHILS % (AUTO) 71.5 %; RED BLOOD COUNT 3.77 10^6/uL (4.70-6.10); RED CELL DISTRIBUTION WIDTH 15.4 % (12.0-15.0); UNCORRECTED WHITE BLOOD COUNT 6.2 x10^3/uL; WHITE BLOOD COUNT 6.2 x10^3/uL (4.8-10.8)
[2017-07-28 05:35] LABS: ACETAMINOPHEN < 10 ug/mL (10-30); ALBUMIN/GLOBULIN RATIO 0.8 (1.0-2.2); BUN - BLOOD UREA NITROGEN 70 mg/dL (6-20); CARBON DIOXIDE - CO2 26 mmol/L (21-32); CHLORIDE 96 mmol/L (101-111); CREATININE 3.5 mg/dL (0.6-1.2); GFR - MDRD 17 (>89); GLUCOSE 135 mg/dL (70-100); LIPASE 47 U/L (22-51); POTASSIUM 3.1 mmol/L (3.5-5.0); SALICYLATE < 6.0 mg/dL; SODIUM 135 mmol/L (135-145); TOTAL PROTEIN 7.7 g/dL (6.7-8.2)
[2017-07-28] MEDS ORDERED: ACETAMINOPHEN 500 MG TABLET PO STA (05:40)
[2017-07-28] MEDS ORDERED: ACETAMINOPHEN 500 MG TABLET PO ONE (05:46)
[2017-07-28 06:16] LABS: BILIRUBIN,URINE NEGATIVE (NEGATIVE)
[2017-07-28 06:21] LABS: UA CHARGE (STRIP ONLY) YES; UR CULTURE IF IND NOT INDICATED
[2017-07-28] MEDS ORDERED: LORazepam 0.5 MG TABLET PO STA (12:34)
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
[2017-07-28] MEDS ORDERED: CITALOPRAM 10 MG TABLET PO STA (18:22)
[2017-07-28] MEDS: traZODone 50 MG TABLET PO SCH (18:44)
[2017-07-29] MEDS ORDERED: LORazepam 0.5 MG TABLET PO STA (03:01)
[2017-07-29] MEDS ORDERED: ACETAMINOPHEN 325 MG TABLET PO STA (03:01)
[2017-07-29] MEDS ORDERED: traMADol 50 MG TABLET PO STA (04:54)
--- NOTE | 2017-07-29 17:38 | ED Physician Documentation ---
ED Addendum - Addendum Addendum: 07/29/17 17:36 The patient has been calm and relaxed today. He denies any suicidality at this point. However he has only been on the new medication for a day. His is still feeling uncomfortable with him being home at this point. We had tele- psych psychiatrist talk with him and his (the video component was not working) and her impression was that he is still a high risk category even without expressing suicidality at this time. derrick worker well service Jenna worked on hospitalization through the day. There are no beds placement found. The idea of respite did come up but would cost the patient and his . This would have allowed a place for him to be away from the house and be supervised. However that seems to not be an option at this time financially. At this point will keep the patient here in the ER for safety another night. He and his are agreeable to this. We will try placement at [facility] again tomorrow. Also consider other options of respite or dementia care unit if he seems less concerning for suicidality and more so just the issues of dementia and needing care.
[2017-07-29] MEDS: CITALOPRAM 10 MG TABLET PO SCH (19:46)
[2017-07-29] MEDS: traZODone 50 MG TABLET PO SCH (21:03)
[2017-07-30 02:08] LABS: BILIRUBIN,URINE NEGATIVE (NEGATIVE); UA w/ MICROSCOPIC CHARGE YES
[2017-07-30 02:13] LABS: UR CULTURE IF IND INDICATED
[2017-07-30] MEDS ORDERED: CIPROFLOXACIN 250 MG TABLET PO STA (02:38)
[2017-07-30] MEDS ORDERED: CIPROFLOXACIN 250 MG TABLET PO ONE (02:48)
[2017-07-30] MEDS ORDERED: LORazepam 0.5 MG TABLET PO STA (05:16)
[2017-07-30] MEDS ORDERED: LORazepam 0.5 MG TABLET ONE (05:21)
[2017-07-30 07:42] LABS: CREATININE 3.7 mg/dL (0.6-1.2)
--- NOTE | 2017-07-30 07:46 | ED Physician Documentation ---
History of Present Illness - Stated complaint Stated Complaint: LAC/MHE - Chief complaint Chief Complaint: MHE PD PAST MEDICAL HISTORY - Past Medical History Cardiovascular: Congestive heart failure, Hypertension, Valve disorder Respiratory: Sleep apnea Neuro: None Endocrine/Autoimmune: Type 2 diabetes, HyPOthyroidism GI: Cholelithiasis : Dialysis, Frequency Musculoskeletal: Chronic back pain - Past Surgical History Past Surgical History: Yes General: Cholecystectomy Ortho: Knee replacement Cardiovascular: CABG, Valve replacement, Fempop bypass - Present Medications Home Medications: Ambulatory Orders Medication Instructions Recorded Confirmed Finasteride 5 mg PO QPM 08/29/16 07/31/17 Hydrocodone/Acetaminophen 0.5 - 1 tab PO BID PRN 08/29/16 07/31/17 [Hydrocodon-Acetaminoph 7.5-325] Levothyroxine Sodium [Levoxyl] 175 mcg PO QDAC 08/29/16 07/31/17 Oxybutynin Chloride [Ditropan Xl] 5 mg PO DAILY 08/29/16 07/31/17 Tramadol HCl 50 mg PO TID PRN 08/29/16 07/31/17 Magnesium 250 mg PO DAILY 09/09/16 07/31/17 Torsemide 40 mg PO DAILY 09/09/16 07/31/17 Acetaminophen [Tylenol Extra 500 - 1,000 mg PO Q4H PRN 06/08/17 07/31/17 Strength] Metoprolol Tartrate 12.5 mg PO BID 06/08/17 07/31/17 Insulin Glargine,Hum.rec.anlog 10 units SQ DAILY 06/11/17 07/31/17 [Lantus Solostar] Tamsulosin [Flomax] 0.4 mg PO DAILY 06/11/17 07/31/17 Cephalexin [Keflex] 500 mg PO Q6H #28 capsule 07/31/17 Citalopram [CeleXA] 10 mg PO DAILY #30 tablet 07/31/17 Hydrochlorothiazide 25 mg PO DAILY 07/31/17 07/31/17 LORazepam [Ativan] 0.5 mg PO DAILY PM PRN 07/31/17 07/31/17 traZODone [Desyrel] 50 mg PO HS #30 tablet 07/31/17 - Allergies Allergies/Adverse Reactions: Allergies Allergy/AdvReac Type Severity Reaction Status Date / Time No Known Drug Allergies Allergy Verified 05/14/17 04:31 - Social History Does the pt smoke?: No Smoking Status: Former smoker Does the pt drink ETOH?: No Does the pt have substance abuse?: No - Immunizations Immunizations are current?: Yes Immunizations: TDAP current <10years - POLST Patient has POLST: Yes Results - Vitals Vitals: Vital Signs - 24 hr 07/30/17 07/31/17 21:54 08:19 Temperature 36.9 C Heart Rate 64 77 Respiratory 18 20 Rate Blood Pressure 110/69 115/62 O2 Saturation 95 95 Oxygen O2 Source [With Activity] 2L O2 via NC O2 Source [Without Activity] 2L O2 via NC O2 Source Room air - Labs Labs: Microbiology 07/30/17 02:00 Urine Culture - Preliminary Urine,Clean Catch Laboratory Tests 07/28/17 07/28/17 07/28/17 05:14 05:14 05:57 WBC 6.2 RBC 3.77 L Hgb 13.1 L Hct 39.3 L MCV 104.2 H MCH 34.7 H MCHC 33.3 RDW 15.4 H Plt Count 131 MPV 8.6 Neut # 4.4 Lymph # 0.9 L [place] # 0.6 Eos # 0.2 Baso # 0.1 Absolute Nucleated RBC 0.00 Nucleated RBCs 0.0 Sodium 135 Potassium 3.1 L Chloride 96 L Carbon Dioxide 26 Anion Gap 13.0 BUN 70 H Creatinine 3.5 H Estimated GFR (MDRD) 17 L Glucose 135 H POC Whole Bld Glucose Calcium 9.0 Total Bilirubin 2.0 H AST 34 ALT 19 Alkaline Phosphatase 177 H Total Protein 7.7 Albumin 3.4 Globulin 4.3 H Albumin/Globulin Ratio 0.8 L Lipase 47 Urine Color YELLOW Urine Clarity CLEAR Urine pH 6.0 Ur Specific [place] 1.010 Urine Protein NEGATIVE Urine Glucose (UA) NEGATIVE Urine Ketones NEGATIVE Urine Occult Blood TRACE-INTA Urine Nitrite NEGATIVE Urine Bilirubin NEGATIVE Urine Urobilinogen 0.2 (NORMAL) Ur Leukocyte Esterase NEGATIVE Urine RBC Urine WBC Ur Squamous Epith Cells Urine Bacteria Ur Microscopic Review NOT INDICATED Urine Culture Comments NOT INDICATED Salicylates < 6.0 Urine Opiates Screen NEGATIVE Ur Oxycodone Screen NEGATIVE Urine Methadone Screen NEGATIVE Ur Propoxyphene Screen NEGATIVE Acetaminophen < 10 L Ur Barbiturates Screen NEGATIVE Ur Tricyclics Screen NEGATIVE Ur Phencyclidine Scrn NEGATIVE Ur Amphetamine Screen NEGATIVE U Methamphetamines Scrn NEGATIVE U Benzodiazepines Scrn NEGATIVE Urine Cocaine Screen NEGATIVE U Cannabinoids Screen NEGATIVE Ethyl Alcohol < 5.0 07/29/17 07/30/17 07/30/17 10:33 02:00 07:27 WBC RBC Hgb Hct MCV MCH MCHC RDW Plt Count MPV Neut # Lymph # [place] # Eos # Baso # Absolute Nucleated RBC Nucleated RBCs Sodium 138 Potassium 3.0 L Chloride 96 L Carbon Dioxide 31 Anion Gap 11.0 BUN 71 H Creatinine 3.7 H Estimated GFR (MDRD) 16 L Glucose 118 H POC Whole Bld Glucose 144 H Calcium 9.0 Total Bilirubin AST ALT Alkaline Phosphatase Total Protein Albumin Globulin Albumin/Globulin Ratio Lipase Urine Color YELLOW Urine Clarity HAZY Urine pH 6.0 Ur Specific [place] 1.010 Urine Protein NEGATIVE Urine Glucose (UA) NEGATIVE Urine Ketones NEGATIVE Urine Occult Blood LARGE H Urine Nitrite NEGATIVE Urine Bilirubin NEGATIVE Urine Urobilinogen 0.2 (NORMAL) Ur Leukocyte Esterase MODERATE H Urine RBC 11-25 H Urine WBC 6-10 H Ur Squamous Epith Cells NONE SEEN Urine Bacteria None Seen Ur Microscopic Review INDICATED Urine Culture Comments INDICATED Salicylates Urine Opiates Screen Ur Oxycodone Screen Urine Methadone Screen Ur Propoxyphene Screen Acetaminophen Ur Barbiturates Screen Ur Tricyclics Screen Ur Phencyclidine Scrn Ur Amphetamine Screen U Methamphetamines Scrn U Benzodiazepines Scrn Urine Cocaine Screen U Cannabinoids Screen Ethyl Alcohol 07/30/17 07/31/17 08:34 11:32 WBC RBC Hgb Hct MCV MCH MCHC RDW Plt Count MPV Neut # Lymph # [place] # Eos # Baso # Absolute Nucleated RBC Nucleated RBCs Sodium Potassium Chloride Carbon Dioxide Anion Gap BUN Creatinine Estimated GFR (MDRD) Glucose POC Whole Bld Glucose 110 H 163 H Calcium Total Bilirubin AST ALT Alkaline Phosphatase Total Protein Albumin Globulin Albumin/Globulin Ratio Lipase Urine Color Urine Clarity Urine pH Ur Specific [place] Urine Protein Urine Glucose (UA) Urine Ketones Urine Occult Blood Urine Nitrite Urine Bilirubin Urine Urobilinogen Ur Leukocyte Esterase Urine RBC Urine WBC Ur Squamous Epith Cells Urine Bacteria Ur Microscopic Review Urine Culture Comments Salicylates Urine Opiates Screen Ur Oxycodone Screen Urine Methadone Screen Ur Propoxyphene Screen Acetaminophen Ur Barbiturates Screen Ur Tricyclics Screen Ur Phencyclidine Scrn Ur Amphetamine Screen U Methamphetamines Scrn U Benzodiazepines Scrn Urine Cocaine Screen U Cannabinoids Screen Ethyl Alcohol PD MEDICAL DECISION MAKING - ED course ED course: assumed care 7 AM 07/30 81 male per EMR has CRI no longer needing dialysis, HTN, DM, CABG, CHF, valve replacement, hypothyroid, sleep apnea (does not use his CPAP machine), per EMR may have dementia as well (in prior Pmhx) to ER with self inflicted wounds, psychosis pt has been here for several days now was medically cleared (given his baseline medical problems which cannot be fixed ) seen by DCR Evelyne who advised staff she could not detain the pt pt had telepsych eval which recommended inpt care and start celexa, trazadone was also started so issue turned over to SW RAUL unable to place pt mostly 2/2 underlying medical problems and because he is apparently being considered voluntary pt has been receiving his usual daily meds from his who brought them in had urinary freq last night and UA + WBC so was started on cipro - given renal insuff and the cipro interacts with celexa which has been rec by psych will change to kefelx - doubt pt developed a prostate infection in just two days went to eval pt - he is sleeping, VS fine, RRR CTAB Later eval pt is up in bed eating breakfast, he seems quite confused, asks me to take his tray then says he is hungry and when will food come, could not find his fork on the plate etc, denies any pain, does not specifically answer when i ask if he has thoughts of self harm will ordered SCDs, repeat BMP (K low and repleted) and req another telepscyh eval (perhaps if meds are working and no inpt [facility] with outpt follow up might now be possible) RAUL Krystal called and states that now [facility] does have a bed . . . but now that a voluntary bed is finally available it has been discovered that his POA paperwork specifically excludes from admitting him to mental health (first page states includes mental health but third page excludes commitment for inpt mental health), so pt will have to be invol and [facility] does not take invol - but [facility] does so another DCR is being redispatched to [facility] pt for inpt care DCR BJ arrived and saw pt and feels he is awake and oriented and able to make his own decisions now and so POA is irrelevant and pt can be voluntary again after all and sign himself in so care turned back over to SW to place pt at [facility] after all but now [facility] sates that based on new DCR eval, pt does not not seem acute enough to merit care at their facility at all SW also called [facility] but was advised they cannot take care of a pt with chronic medical conditions such as his (even if not new and stable) so basically cannot go to [facility] voluntary because his does not have POA authority to sign him in and if he signs himself in he is deemed not acute enough to merit inpt care and he cannot go to [facility] because DCR did not detain him X 2 and he cannot go to [facility] because he has underlying medical problems now now SW will try to place in SNF/ [place] for respite 7 PM, SW done for the day, pt has not been placed at mental health nor SNF or [facility] today - per nurse Krissy MENDES might consider pt tomorrow and we should speak to Lise his is here and does not feel able to safely care for the pt even though he is improved with meds over last few days, she worries what she will do if he tries to hurt himself again, also he is now complaining his lateral left upper thigh hurts and he is not able to get up with his walker to the bathroom so does not feel she can physically care for him either I examined the leg - pt denies trauma, no rash, no swelling, TTP but mildly, able to passively range the hip, not in expected site of a DVT, pt has a hx of chronic pain though not usually his leg and normally he is ambulatory, will give tramadol and lido patch and reassess - he was able to transfer and ambulate after meds will have to turn over to night EMP and I will be back tomorrow to try again to find pt safe placement resumed care 7 AM 07/31 no acute events overnight pt not tolerating SCDs, keeps getting tangled up in tubing, will give lovenox for DVT prophylaxis, getting his keflex, giving rest if usual meds, blood sugars controlled from mental health point of view pt seems much improved, not agitated, not suicidal homicidal or delusional at this time - initial telepsych rec was in mental health but that has proven impossible thus far to obtain for this 81 y/o male with multiple co-morbidities, will req rpt telepstch eval to determine if pt has improved enough for him to be safe to dc to home [facility] or SNF also he has been having inc diff with his ADLs olivia ambulation and transfers, likely deconditioned from 4 days in bed in the ER, not feeling she can care for him in this weakened state, will ask PT t eval and rec if pt needs SNF 12PM : pt has had another telepsych eval and he denies SI and per telepsych at this point he does not appear to be requiring inpt psych admission at this time and can be managed with outpt mental health follow up. pt seen by physical therapy and was able to stand transfer and ambulate with his walker now feels comfortable taking pt home she has in home nursing services from [facility] and he is established with [facility] for further outpt mental health follow up and has an appt scheduled already will dc with recommended celexa and trazadone which pt has been taking in the ER with good results and keflex for his UTI, his leg pain seems better today Departure - Departure Disposition: 01 Home, Self Care Clinical Impression: Intentional self-harm, Suicidal ideation, Multiple abrasions UTI (urinary tract infection) Qualifiers: Urinary tract infection type: acute cystitis Hematuria presence: with hematuria Qualified Code(s): N30.01 - Acute cystitis with hematuria Condition: Stable Instructions: ED Depression, ED Laceration Small Superf No Sutr Prescriptions: Citalopram [CeleXA] 10 mg PO DAILY #30 tablet traZODone [Desyrel] 50 mg PO HS #30 tablet Cephalexin [Keflex] 500 mg PO Q6H #28 capsule Comments: Take the new psychiatric medications celexa once daily in the morning and trazadone once daily before bed Take the keflex antibiotic for the urine infection and then follow up with your PMD for a repeat urine test in one week. Also get your blood sugar and potassium rechecked at that time Gently wash the abrasions and apply antibiotic ointment twice a day [facility] health care as scheduled Make sure all weapons (guns knives etc) have been removed from the house Use your walker for transfers and ambulation and the in home care services from [facility] as already arranged Return if worse
[2017-07-30] MEDS ORDERED: PATIENT OWN MED PO SCH (09:00)
[2017-07-30] MEDS ORDERED: OXYBUTYNIN 5MG TABLET PO SCH (09:00)
--- NOTE | 2017-07-30 09:47 | CONSULTATION NOTE ---
Telepsych Note - MEDICAL HX Does the pt have a hx of MRSA?: No Neurological History: None Cardiovascular: Congestive heart failure, Hypertension, Valve disorder Respiratory: Sleep apnea Endocrine/Autoimmune: Type 2 diabetes, HyPOthyroidism Gastrointestinal: Cholelithiasis Urinary: Dialysis, Frequency Musculoskeletal: Chronic back pain - SURGICAL HX General: Cholecystectomy Orthopedic: Knee replacement - HOME MEDICATIONS Home Meds (as last confirmed): Patient History Medication Instructions Recorded Confirmed Finasteride 5 mg PO QPM 08/29/16 06/11/17 Hydrocodone/Acetaminophen 0.5 - 1 tab PO BID PRN 08/29/16 06/11/17 [Hydrocodon-Acetaminoph 7.5-325] Levothyroxine Sodium [Levoxyl] 175 mcg PO QDAC 08/29/16 06/11/17 Oxybutynin Chloride [Ditropan Xl] 5 mg PO DAILY 08/29/16 06/11/17 Pramipexole Di-HCl [Mirapex] 1 mg PO BID 08/29/16 06/11/17 Tramadol HCl 50 mg PO TID PRN 08/29/16 06/11/17 Magnesium 250 mg PO DAILY 09/09/16 06/11/17 Torsemide 40 mg PO DAILY 09/09/16 06/11/17 Tamsulosin [Flomax] 0.4 mg PO DAILY 04/24/17 06/11/17 Oxymetazoline HCl [Afrin] 1 spray MONICA PRN PRN 05/14/17 06/11/17 Acetaminophen [Tylenol Extra 500 - 1,000 mg PO Q4H PRN 06/08/17 06/11/17 Strength] Metoprolol Tartrate 12.5 mg PO BID 06/08/17 06/11/17 Insulin Glargine,Hum.rec.anlog 30 units SQ DAILY 06/11/17 06/11/17 [Lantus Solostar] Tamsulosin [Flomax] 0.4 mg PO DAILY 06/11/17 06/11/17 - ALLERGIES Allergies (as last confirmed): Allergies Allergy/AdvReac Type Severity Reaction Status Date / Time No Known Drug Allergies Allergy Verified 05/14/17 04:31
[2017-07-30] MEDS: CITALOPRAM 10 MG TABLET PO SCH (10:45)
[2017-07-30] MEDS: CEPHALEXIN 250 MG CAPSULE PO SCH ×2 (17:02→21:52)
[2017-07-30] MEDS ORDERED: CEPHALEXIN 250 MG CAPSULE PO ONE (17:09)
[2017-07-30] MEDS ORDERED: traMADol 50 MG TABLET PO STA (17:17)
[2017-07-30] MEDS ORDERED: LIDOCAINE PATCH 5% TOP STA (17:17)
[2017-07-30] MEDS ORDERED: POTASSIUM CHLORIDE 20 MEQ TABLET PO STA (17:42)
[2017-07-30] MEDS ORDERED: FINASTERIDE 5 MG TABLET PO SCH (21:00)
[2017-07-30] MEDS: traZODone 50 MG TABLET PO SCH (22:11)
[2017-07-31] MEDS ORDERED: CEPHALEXIN 250 MG CAPSULE PO ONE ×2 (00:47→06:33)
[2017-07-31] MEDS: CEPHALEXIN 250 MG CAPSULE PO SCH ×3 (00:47→12:32)
[2017-07-31] MEDS ORDERED: LEVOTHYROXINE 125 MCG TABLET PO SCH (07:00)
[2017-07-31] MEDS ORDERED: ENOXAPARIN 30 MG/0.3 ML SYRINGE SUBQ SCH (09:00)
--- NOTE | 2017-07-31 09:07 | ED Physician Documentation ---
PD HPI ALTERED MENTAL STATUS - Stated complaint Stated Complaint: LAC/MHE - Chief complaint Chief Complaint: MHE PD PAST MEDICAL HISTORY - Past Medical History Cardiovascular: Congestive heart failure, Hypertension, Valve disorder Respiratory: Sleep apnea Neuro: None Endocrine/Autoimmune: Type 2 diabetes, HyPOthyroidism GI: Cholelithiasis : Dialysis, Frequency Musculoskeletal: Chronic back pain - Past Surgical History Past Surgical History: Yes General: Cholecystectomy Ortho: Knee replacement Cardiovascular: CABG, Valve replacement, Fempop bypass - Present Medications Home Medications: Ambulatory Orders Medication Instructions Recorded Confirmed Finasteride 5 mg PO QPM 08/29/16 06/11/17 Hydrocodone/Acetaminophen 0.5 - 1 tab PO BID PRN 08/29/16 06/11/17 [Hydrocodon-Acetaminoph 7.5-325] Levothyroxine Sodium [Levoxyl] 175 mcg PO QDAC 08/29/16 06/11/17 Oxybutynin Chloride [Ditropan Xl] 5 mg PO DAILY 08/29/16 06/11/17 Pramipexole Di-HCl [Mirapex] 1 mg PO BID 08/29/16 06/11/17 Tramadol HCl 50 mg PO TID PRN 08/29/16 06/11/17 Magnesium 250 mg PO DAILY 09/09/16 06/11/17 Torsemide 40 mg PO DAILY 09/09/16 06/11/17 Tamsulosin [Flomax] 0.4 mg PO DAILY 04/24/17 06/11/17 Oxymetazoline HCl [Afrin] 1 spray MONICA PRN PRN 05/14/17 06/11/17 Acetaminophen [Tylenol Extra 500 - 1,000 mg PO Q4H PRN 06/08/17 06/11/17 Strength] Insulin Aspart [NovoLOG] 1 - 5 unit SUBQ 06/08/17 06/11/17 0800,1200,1700,2100 pen Metoprolol Tartrate 12.5 mg PO BID 06/08/17 06/11/17 Insulin Glargine,Hum.rec.anlog 30 units SQ DAILY 06/11/17 06/11/17 [Lantus Solostar] Tamsulosin [Flomax] 0.4 mg PO DAILY 06/11/17 06/11/17 - Allergies Allergies/Adverse Reactions: Allergies Allergy/AdvReac Type Severity Reaction Status Date / Time No Known Drug Allergies Allergy Verified 05/14/17 04:31 - Social History Does the pt smoke?: No Smoking Status: Former smoker Does the pt drink ETOH?: No Does the pt have substance abuse?: No - Immunizations Immunizations are current?: Yes Immunizations: TDAP current <10years - POLST Patient has POLST: Yes Results - Vitals Vitals: Vital Signs - 24 hr 07/30/17 07/31/17 21:54 08:19 Temperature 36.9 C Heart Rate 64 77 Respiratory 18 20 Rate Blood Pressure 110/69 115/62 O2 Saturation 95 95 Oxygen O2 Source [With Activity] 2L O2 via NC O2 Source [Without Activity] 2L O2 via NC O2 Source Room air - Labs Labs: Microbiology 07/30/17 02:00 Urine Culture - Preliminary Urine,Clean Catch Laboratory Tests 07/28/17 07/28/17 07/28/17 05:14 05:14 05:57 WBC 6.2 RBC 3.77 L Hgb 13.1 L Hct 39.3 L MCV 104.2 H MCH 34.7 H MCHC 33.3 RDW 15.4 H Plt Count 131 MPV 8.6 Neut # 4.4 Lymph # 0.9 L [place] # 0.6 Eos # 0.2 Baso # 0.1 Absolute Nucleated RBC 0.00 Nucleated RBCs 0.0 Sodium 135 Potassium 3.1 L Chloride 96 L Carbon Dioxide 26 Anion Gap 13.0 BUN 70 H Creatinine 3.5 H Estimated GFR (MDRD) 17 L Glucose 135 H POC Whole Bld Glucose Calcium 9.0 Total Bilirubin 2.0 H AST 34 ALT 19 Alkaline Phosphatase 177 H Total Protein 7.7 Albumin 3.4 Globulin 4.3 H Albumin/Globulin Ratio 0.8 L Lipase 47 Urine Color YELLOW Urine Clarity CLEAR Urine pH 6.0 Ur Specific [place] 1.010 Urine Protein NEGATIVE Urine Glucose (UA) NEGATIVE Urine Ketones NEGATIVE Urine Occult Blood TRACE-INTA Urine Nitrite NEGATIVE Urine Bilirubin NEGATIVE Urine Urobilinogen 0.2 (NORMAL) Ur Leukocyte Esterase NEGATIVE Urine RBC Urine WBC Ur Squamous Epith Cells Urine Bacteria Ur Microscopic Review NOT INDICATED Urine Culture Comments NOT INDICATED Salicylates < 6.0 Urine Opiates Screen NEGATIVE Ur Oxycodone Screen NEGATIVE Urine Methadone Screen NEGATIVE Ur Propoxyphene Screen NEGATIVE Acetaminophen < 10 L Ur Barbiturates Screen NEGATIVE Ur Tricyclics Screen NEGATIVE Ur Phencyclidine Scrn NEGATIVE Ur Amphetamine Screen NEGATIVE U Methamphetamines Scrn NEGATIVE U Benzodiazepines Scrn NEGATIVE Urine Cocaine Screen NEGATIVE U Cannabinoids Screen NEGATIVE Ethyl Alcohol < 5.0 07/29/17 07/30/17 07/30/17 10:33 02:00 07:27 WBC RBC Hgb Hct MCV MCH MCHC RDW Plt Count MPV Neut # Lymph # [place] # Eos # Baso # Absolute Nucleated RBC Nucleated RBCs Sodium 138 Potassium 3.0 L Chloride 96 L Carbon Dioxide 31 Anion Gap 11.0 BUN 71 H Creatinine 3.7 H Estimated GFR (MDRD) 16 L Glucose 118 H POC Whole Bld Glucose 144 H Calcium 9.0 Total Bilirubin AST ALT Alkaline Phosphatase Total Protein Albumin Globulin Albumin/Globulin Ratio Lipase Urine Color YELLOW Urine Clarity HAZY Urine pH 6.0 Ur Specific [place] 1.010 Urine Protein NEGATIVE Urine Glucose (UA) NEGATIVE Urine Ketones NEGATIVE Urine Occult Blood LARGE H Urine Nitrite NEGATIVE Urine Bilirubin NEGATIVE Urine Urobilinogen 0.2 (NORMAL) Ur Leukocyte Esterase MODERATE H Urine RBC 11-25 H Urine WBC 6-10 H Ur Squamous Epith Cells NONE SEEN Urine Bacteria None Seen Ur Microscopic Review INDICATED Urine Culture Comments INDICATED Salicylates Urine Opiates Screen Ur Oxycodone Screen Urine Methadone Screen Ur Propoxyphene Screen Acetaminophen Ur Barbiturates Screen Ur Tricyclics Screen Ur Phencyclidine Scrn Ur Amphetamine Screen U Methamphetamines Scrn U Benzodiazepines Scrn Urine Cocaine Screen U Cannabinoids Screen Ethyl Alcohol 07/30/17 08:34 WBC RBC Hgb Hct MCV MCH MCHC RDW Plt Count MPV Neut # Lymph # [place] # Eos # Baso # Absolute Nucleated RBC Nucleated RBCs Sodium Potassium Chloride Carbon Dioxide Anion Gap BUN Creatinine Estimated GFR (MDRD) Glucose POC Whole Bld Glucose 110 H Calcium Total Bilirubin AST ALT Alkaline Phosphatase Total Protein Albumin Globulin Albumin/Globulin Ratio Lipase Urine Color Urine Clarity Urine pH Ur Specific [place] Urine Protein Urine Glucose (UA) Urine Ketones Urine Occult Blood Urine Nitrite Urine Bilirubin Urine Urobilinogen Ur Leukocyte Esterase Urine RBC Urine WBC Ur Squamous Epith Cells Urine Bacteria Ur Microscopic Review Urine Culture Comments Salicylates Urine Opiates Screen Ur Oxycodone Screen Urine Methadone Screen Ur Propoxyphene Screen Acetaminophen Ur Barbiturates Screen Ur Tricyclics Screen Ur Phencyclidine Scrn Ur Amphetamine Screen U Methamphetamines Scrn U Benzodiazepines Scrn Urine Cocaine Screen U Cannabinoids Screen Ethyl Alcohol Departure - Departure Clinical Impression: Intentional self-harm, Suicidal ideation, Multiple abrasions Condition: Stable
[2017-07-31] MEDS ORDERED: ENOXAPARIN 30 MG/0.3 ML SYRINGE SUBQ ONE (09:14)
[2017-07-31] MEDS: CITALOPRAM 10 MG TABLET PO SCH (09:33)
[2017-07-31 14:43] VITALS: BP 135/66
== END 2017-07-31 14:15 | disposition home or self-care (01) ==
LOC: EDUNIT# → ED 04:51
DX: S61.511A Laceration without foreign body of right wrist, initial encounter (principal); S61.512A Laceration without foreign body of left wrist, initial encounter; S11.91XA Laceration without foreign body of unspecified part of neck, initial encounter; S21.111A Laceration without foreign body of right front wall of thorax without penetration into thoracic cavity, initial encounter; S71.111A Laceration without foreign body, right thigh, initial encounter; X78.1XXA Intentional self-harm by knife, initial encounter; Y92.010 Kitchen of single-family (private) house as the place of occurrence of the external cause; F03.91 Unspecified dementia, unspecified severity, with behavioral disturbance; R44.1 Visual hallucinations; N30.01 Acute cystitis with hematuria; E11.22 Type 2 diabetes mellitus with diabetic chronic kidney disease; I13.2 Hypertensive heart and chronic kidney disease with heart failure and with stage 5 chronic kidney disease, or end stage renal disease; N18.6 End stage renal disease; I50.9 Heart failure, unspecified; Z79.4 Long term (current) use of insulin; G47.30 Sleep apnea, unspecified; E03.9 Hypothyroidism, unspecified; I25.10 Atherosclerotic heart disease of native coronary artery without angina pectoris; Z95.1 Presence of aortocoronary bypass graft; Z87.891 Personal history of nicotine dependence
CPT/HCPCS: 36415; 51701; 80048; 80053; 80306; 80307; 81001; 81003; 83690; 85025; 87077; 87086; 87181; 96372; 99285; A9270; G0480; J1650; Q3014; 80320; 80329

== ENCOUNTER 2017-08-01 14:45 | Emergency (ER) | payer MEDICARE, OTHER ==
[2017-08-01] MEDS ORDERED: HYDROmorphone 1 MG/ML SYRINGE IM STA (15:47)
[2017-08-01] MEDS ORDERED: HYDROmorphone 1 MG/ML SYRINGE ONE (16:00)
--- NOTE | 2017-08-01 16:50 | CT Preliminary Report ---
Exam: CT Lumbar Spine W/O IMPRESSION: 1. Subacute-appearing 2 column fracture of the L4 vertebral body without subluxation or retropulsion. 2. No pedicle or facet fracture. 3. Subacute versus chronic fracture of the right sacral ala. 4. Subacute to old right posterior 11th rib fracture. 5. Bilateral small pleural effusions. [facility] SITE ID: [id number]
--- NOTE | 2017-08-01 16:53 | CT Report ---
EXAM: CT LUMBAR SPINE WITHOUT CONTRAST EXAM DATE: 08/01/2017 04:24 PM. CLINICAL HISTORY: Left L4 pain tenderness/ old injury May. COMPARISONS: None. TECHNIQUE: Thin-section axial images were acquired of the lumbar spine from T12 to S1 without contras t. Post-processing: Coronal and sagittal reformats. Other: None. In accordance with CT protocol optimization, one or more of the following dose reduction techniques w ere utilized for this exam: automated exposure control, adjustment of mA and/or KV based on patient s ize, or use of iterative reconstructive technique. FINDINGS: Alignment: There is mild apex left scoliotic curvature of the mid lumbar spine. No subluxation. Bones: Five [id number] lumbar vertebral bodies are present. There is a 2 column fracture of the L4 vertebral body. There is a fracture involving the superior vertebral body with approximately 30% l oss of vertebral body height. There is mild sclerosis along the margin of the fracture suggesting a n ondisplaced fracture without bony bridging. There is a fracture of the posterior right 11th rib. Ther e is a subacute-appearing fracture of the right sacral ala. Disk Levels/Facets: T12-L1: Mild disk height loss. L1-L2: Moderate disk height loss within the distal gas. L2-L3: Moderate disk height loss with intradiskal gas and mild scoliotic curvature. L3-L4: Moderate disk height loss with disk osteophyte spurring. L4-L5: Mild/moderate disk height loss within diskal gas and disk bulge. L5-S1: Unremarkable. Musculature: No paravertebral hematoma. Other: There are bilateral small pleural effusions. There is moderate atherosclerotic vascular calcif ication. IMPRESSION: 1. Subacute-appearing 2 column fracture of the L4 vertebral body without subluxation or retropulsion. 2. No pedicle or facet fracture. 3. Subacute versus chronic fracture of the right sacral ala. 4. Subacute to old right posterior 11th rib fracture. 5. Bilateral small pleural effusions. [facility] Referring Provider Line: [phone] SITE ID: [id number]
[2017-08-01] MEDS ORDERED: fentaNYL 12 MCG PATCH TOP SCH (18:00)
--- NOTE | 2017-08-01 18:20 | ED Physician Documentation ---
History of Present Illness - Stated complaint Stated Complaint: HIP PX - Chief complaint Chief Complaint: Ext Problem - Additonal information Additional information: This 81-year-old male with a history of chronic pain issues who is recently here in emergency department for evaluation of suicidality secondary to chronic pain issues. This patient had a fall in May and sustained a fracture to the greater trochanter and also some pelvic bone fractures his says. From that point on he has had recurrent episodes of pain in his hip and pelvis. For the past couple days he has been complaining of low back pain more in the left without radiation. He is taken Vicodin at home without much relief and went to see their primary care physician today and were sent home with oral morphine however the pharmacy would not fill it because they said the prescription dosing or prescription recommendation was wrong so they came in here to the emergency department. There are no medical complaints other than pain in the back which has been difficult to control at home with hydrocodone and/or tramadol. The patient has no complaints of numbness, weakness bowel or bladder complaints. There is no history of recent injury. Review of systems: For pertinent positive and negatives in the review of systems please see the history of present illness, otherwise all other systems have been reviewed and are negative. Dragon disclaimer: Parts of this medical record were created using voice recognition technology. Because of the inherent limitations of this system, occasional same sounding word substitutions do occur and persist despite proofreading. Please read the document for context. Review of Systems Ten Systems: 10 systems reviewed and negative Constitutional: denies: Fever, Chills GI: denies: Abdominal Pain, Abdominal Swelling : denies: Dysuria, Frequency, Hesitancy Musculoskeletal: reports: Back pain Neurologic: denies: Generalized weakness, Numbness, Difficulty speaking Psychiatric: denies: Depressed, Suicidal, Homicidal PD PAST MEDICAL HISTORY - Past Medical History Cardiovascular: Congestive heart failure, Hypertension, Valve disorder Respiratory: Sleep apnea Neuro: None Endocrine/Autoimmune: Type 2 diabetes, HyPOthyroidism GI: Cholelithiasis : Dialysis, Frequency Musculoskeletal: Chronic back pain - Past Surgical History Past Surgical History: Yes General: Cholecystectomy Ortho: Knee replacement Cardiovascular: CABG, Valve replacement, Fempop bypass - Present Medications Home Medications: Ambulatory Orders Medication Instructions Recorded Confirmed Finasteride 5 mg PO QPM 08/29/16 08/01/17 Hydrocodone/Acetaminophen 0.5 - 1 tab PO BID PRN 08/29/16 08/01/17 [Hydrocodon-Acetaminoph 7.5-325] Levothyroxine Sodium [Levoxyl] 175 mcg PO QDAC 08/29/16 08/01/17 Oxybutynin Chloride [Ditropan Xl] 5 mg PO DAILY 08/29/16 08/01/17 Tramadol HCl 50 mg PO TID PRN 08/29/16 08/01/17 Magnesium 250 mg PO DAILY 09/09/16 08/01/17 Torsemide 40 mg PO DAILY 09/09/16 08/01/17 Acetaminophen [Tylenol Extra 500 - 1,000 mg PO Q4H PRN 06/08/17 08/01/17 Strength] Metoprolol Tartrate 12.5 mg PO BID 06/08/17 08/01/17 Insulin Glargine,Hum.rec.anlog 10 units SQ DAILY 06/11/17 08/01/17 [Lantus Solostar] Tamsulosin [Flomax] 0.4 mg PO DAILY 06/11/17 08/01/17 Cephalexin [Keflex] 500 mg PO Q6H #28 capsule 07/31/17 08/01/17 Citalopram [CeleXA] 10 mg PO DAILY #30 tablet 07/31/17 08/01/17 Hydrochlorothiazide 25 mg PO DAILY 07/31/17 08/01/17 LORazepam [Ativan] 0.5 mg PO DAILY PM PRN 07/31/17 08/01/17 traZODone [Desyrel] 50 mg PO HS #30 tablet 07/31/17 08/01/17 Morphine ER 20 mg PO BID 08/01/17 08/01/17 fentaNYL 12 MCG PATCH [Duragesic 12 mcg TOP Q3D #7 patch 08/01/17 12mcg patch] - Allergies Allergies/Adverse Reactions: Allergies Allergy/AdvReac Type Severity Reaction Status Date / Time No Known Drug Allergies Allergy Verified 08/01/17 14:57 - Social History Does the pt smoke?: No Smoking Status: Former smoker Does the pt drink ETOH?: No Does the pt have substance abuse?: No - Immunizations Immunizations are current?: Yes Immunizations: TDAP current <10years - POLST Patient has POLST: Yes PD ED PE NORMAL - Vitals Vital signs reviewed: Yes - General General: Alert and oriented X 3, Well developed/nourished, Other (Obese 81-year- old man who is alert and oriented sitting on the chair in no apparent distress he points to the left hip and lateral buttock area as where his pain is located) - HEENT HEENT: Atraumatic - Neck Neck: Supple, no meningeal sign - Cardiac Cardiac: RRR - Respiratory Respiratory: No respiratory distress - Abdomen Abdomen: Normal bowel sounds, Non tender - Back Back: No CVA TTP - Derm Derm: Normal color, Warm and dry, No rash - Extremities Extremities: No deformity, No tenderness to palpate, Normal ROM s pain - Neuro Neuro: Alert and oriented X 3 - Psych Psych: Normal mood, Normal affect Results - Vitals Vitals: Vital Signs - 24 hr 08/01/17 14:50 Temperature 36.6 C Heart Rate 64 Respiratory 18 Rate Blood Pressure 110/58 L O2 Saturation 94 Oxygen O2 Source [With Activity] 2L O2 via NC O2 Source [Without Activity] 2L O2 via NC O2 Source Room air Oxygen Flow Rate 96 PD MEDICAL DECISION MAKING - ED course Complexity details: reviewed old records, reviewed results, re-evaluated patient , considered differential, d/w patient ED course: Patient is 81-year-old male who presents with acute on recurrent left-sided hip pain on further examination it appears to be left sided low back pain on palpation of the lumbar spine. The hip range is fine and is not toxic or painful. CT scan of the lumbar spine was done the CT scan possibly represents an old fracture line presumably from the fracture possibly from an injury in May. Patient was given 1 mg of Dilaudid intramuscularly and actually had a very good pain response to this medication bordering on overmedication which tells me probably has not been taking any narcotic analgesia at home. At this point in time he is waking up from the sedation from the shot of Dilaudid and I think placing him on a low dose of topical fentanyl by Duragesic patch might be a good idea. This was discussed with the patient's is present for as needed her breakthrough pain he will continue the Vicodin or tramadol at home. Given his tenuous kidneys no nonsteroidal anti-inflammatories are recommended. Disposition: To home Clinical impression: 1. Low back pain and strain Plan: Duragesic patch at 12 mcg/h, continue as needed Vicodin or tramadol for breakthrough pain Departure - Departure Disposition: Home, Self Care Clinical Impression: Lumbar back pain Qualifiers: Chronicity: unspecified Back pain laterality: left Sciatica presence: without sciatica Qualified Code(s): M54.5 - Low back pain Condition: Good Instructions: ED Sprain Strain Lumbar Follow-Up: Negrito Rod MD [Primary Care Provider] - Prescriptions: fentaNYL 12 MCG PATCH [Duragesic 12mcg patch] 12 mcg TOP Q3D #7 patch
--- NOTE | 2017-08-01 18:22 | ED Physician Documentation ---
ED Addendum - Addendum Addendum: 08/01/17 18:22 unscheduled return visit - chart accessed for follow up and educational purposes
[2017-08-01 19:09] VITALS: BP 112/60
== END 2017-08-01 19:22 | disposition home or self-care (01) ==
LOC: ED 14:45
DX: S39.012A Strain of muscle, fascia and tendon of lower back, initial encounter (principal); W19.XXXA Unspecified fall, initial encounter; G89.29 Other chronic pain; I10 Essential (primary) hypertension; E11.8 Type 2 diabetes mellitus with unspecified complications; Z79.4 Long term (current) use of insulin; Z96.659 Presence of unspecified artificial knee joint; Z95.1 Presence of aortocoronary bypass graft; Z95.2 Presence of prosthetic heart valve; Z87.891 Personal history of nicotine dependence
CPT/HCPCS: 72131; 96372; 99283; 99284; J1170

== ENCOUNTER 2017-08-02 18:19 | Emergency (ER) | payer MEDICARE, OTHER ==
[2017-08-02 18:43] VITALS: BP 108/69
--- NOTE | 2017-08-02 19:37 | ED Physician Documentation ---
History of Present Illness - Stated complaint Stated Complaint: BACK/ABD PX - Chief complaint Chief Complaint: General - History obtained from History obtained from: Patient, Family - History of Present Illness Timing: How many days ago (several) Pain level max: 10 Pain level now: 3 Improved by: nothing Worsened by: nothing - Additonal information Additional information: 81 year old male with back and abd pain for the past several days. Fentanyl patch not helping at home. is trying to make the patient a hospice patient , but states her primary care provider is not been able to send in the referral yet. Review of Systems Unable to obtain: Dementia Constitutional: denies: Fever Respiratory: denies: Cough GI: denies: Vomiting, Diarrhea Skin: denies: Rash Musculoskeletal: denies: Neck pain Neurologic: denies: Headache PD PAST MEDICAL HISTORY - Past Medical History Cardiovascular: Congestive heart failure, Hypertension, Valve disorder Respiratory: Sleep apnea Neuro: None Endocrine/Autoimmune: Type 2 diabetes, HyPOthyroidism GI: Cholelithiasis : Dialysis, Frequency Musculoskeletal: Chronic back pain - Past Surgical History Past Surgical History: Yes General: Cholecystectomy Ortho: Knee replacement Cardiovascular: CABG, Valve replacement, Fempop bypass - Present Medications Home Medications: Ambulatory Orders Medication Instructions Recorded Confirmed Finasteride 5 mg PO QPM 08/29/16 08/01/17 Hydrocodone/Acetaminophen 0.5 - 1 tab PO BID PRN 08/29/16 08/01/17 [Hydrocodon-Acetaminoph 7.5-325] Levothyroxine Sodium [Levoxyl] 175 mcg PO QDAC 08/29/16 08/01/17 Oxybutynin Chloride [Ditropan Xl] 5 mg PO DAILY 08/29/16 08/01/17 Tramadol HCl 50 mg PO TID PRN 08/29/16 08/01/17 Magnesium 250 mg PO DAILY 09/09/16 08/01/17 Torsemide 40 mg PO DAILY 09/09/16 08/01/17 Acetaminophen [Tylenol Extra 500 - 1,000 mg PO Q4H PRN 06/08/17 08/01/17 Strength] Metoprolol Tartrate 12.5 mg PO BID 06/08/17 08/01/17 Insulin Glargine,Hum.rec.anlog 10 units SQ DAILY 06/11/17 08/01/17 [Lantus Solostar] Tamsulosin [Flomax] 0.4 mg PO DAILY 06/11/17 08/01/17 Cephalexin [Keflex] 500 mg PO Q6H #28 capsule 07/31/17 08/01/17 Citalopram [CeleXA] 10 mg PO DAILY #30 tablet 07/31/17 08/01/17 Hydrochlorothiazide 25 mg PO DAILY 07/31/17 08/01/17 LORazepam [Ativan] 0.5 mg PO DAILY PM PRN 07/31/17 08/01/17 traZODone [Desyrel] 50 mg PO HS #30 tablet 07/31/17 08/01/17 Morphine ER 20 mg PO BID 08/01/17 08/01/17 fentaNYL 12 MCG PATCH [Duragesic 12 mcg TOP Q3D #7 patch 08/01/17 12mcg patch] - Allergies Allergies/Adverse Reactions: Allergies Allergy/AdvReac Type Severity Reaction Status Date / Time No Known Drug Allergies Allergy Verified 08/01/17 14:57 - Social History Does the pt smoke?: No Smoking Status: Former smoker Does the pt drink ETOH?: No Does the pt have substance abuse?: No - Immunizations Immunizations are current?: Yes Immunizations: TDAP current <10years - POLST Patient has POLST: Yes PD ED PE NORMAL - Vitals Vital signs reviewed: Yes - General General: No acute distress, Well developed/nourished, Other (alert, oriented to person and place) - HEENT HEENT: Atraumatic, PERRL, Moist mucous membranes - Neck Neck: Supple, no meningeal sign, No bony TTP - Cardiac Cardiac: RRR, Strong equal pulses - Respiratory Respiratory: No respiratory distress, Clear bilaterally - Abdomen Abdomen: Soft, Non tender, Other (distended abdomen) - Back Back: No spinal TTP - Derm Derm: Warm and dry, No rash - Extremities Extremities: No deformity, No tenderness to palpate, Normal ROM s pain - Psych Psych: Normal mood, Normal affect Results - Vitals Vitals: Vital Signs - 24 hr 08/02/17 18:38 Temperature 36.4 C L Heart Rate 61 Respiratory 18 Rate Blood Pressure 108/69 O2 Saturation 96 Oxygen O2 Source [With Activity] 2L O2 via NC O2 Source [Without Activity] 2L O2 via NC O2 Source Room air - Labs Labs: Laboratory Tests 08/02/17 08/02/1708/02/17 19:51 19:51 20:41 WBC 5.0 RBC 3.66 L Hgb 12.7 L Hct 38.5 L MCV 105.0 H MCH 34.8 H MCHC 33.1 RDW 16.5 H Plt Count 114 L MPV 9.1 Neut # 3.1 Lymph # 1.0 L [place] # 0.5 Eos # 0.2 Baso # 0.1 Absolute Nucleated RBC 0.00 Nucleated RBCs 0.0 Sodium 139 Potassium 2.8 L Chloride 98 L Carbon Dioxide 32 Anion Gap 9.0 BUN 73 H Creatinine 3.6 H Estimated GFR (MDRD) 16 L Glucose 134 H Calcium 9.1 Total Bilirubin 2.0 H AST 39 ALT 20 Alkaline Phosphatase 155 H Total Protein 7.1 Albumin 3.2 Globulin 3.9 Albumin/Globulin Ratio 0.8 L Lipase 26 Urine Color YELLOW Urine Clarity CLEAR Urine pH 7.0 Ur Specific [place] 1.010 Urine Protein NEGATIVE Urine Glucose (UA) NEGATIVE Urine Ketones NEGATIVE Urine Occult Blood TRACE-INTA Urine Nitrite NEGATIVE Urine Bilirubin NEGATIVE Urine Urobilinogen 0.2 (NORMAL) Ur Leukocyte Esterase NEGATIVE Ur Microscopic Review NOT INDICATED Urine Culture Comments NOT INDICATED - Rads (name of study) CT abd/pelvis Radiology: Prelim report reviewed, EMP read contemporaneously, See rad report ( Moderate cardiomegaly. Small bilateral pleural effusions. Acute mild compression fracture of L4 without retropulsed bone fragments, unchanged since 08/01/2017 CT lumbar spine. Old avulsion fracture of right greater trochanter. Moderate right hip effusion. Subacute right 6th rib, right 12th rib, and right sacral alar fractures. . Moderate ascites. . Colonic diverticulosis. . Moderate anasarca. . Mild bilateral renal atrophy. No obstructive uropathy. Numerous nonspecific shotty mesenteric and retroperitoneal lymph nodes. . Appendix not seen. ) PD MEDICAL DECISION MAKING - ED course Complexity details: reviewed old records, reviewed results, re-evaluated patient , considered differential, d/w patient, d/w family ED course: Patient is an 81-year-old male with a long history of dementia, worsening over the past several months. They have taken him off of his dialysis and are having trouble controlling his pain at home. His pain was very well controlled in the emergency department. We did go through his medications at bedside and the was informed of how to use the medications to help for agitation and pain. A referral was placed to hospice to see if they can start him on hospice as well as this will help give the resources at home take care for him. We will continue supportive care and follow-up with his doctor. Patient and family counseled regarding signs and symptoms for which I believe and urgent re- evaluation would be necessary. Patient with good understanding of and agreement to plan and is comfortable going home at this time This document was made in part using voice recognition software. While efforts are made to proofread this document, sound alike and grammatical errors may occur. Departure - Departure Disposition: Home, Self Care Clinical Impression: ESRD (end stage renal disease), Anasarca, Hypokalemia, Acute pain Condition: Stable Instructions: ED Acute Pain [facility] Follow-Up: Negrito Rod MD [Primary Care Provider] - Within 3 Days Comments: I sent a referral to hospice for Ricardo jovel and they should call you tomorrow. Use the lorazepam and hydrocodone as needed for pain/agitation. Use the trazadone at night for sleep. Discharge Date/Time: 08/02/17 21:58
[2017-08-02 20:03] LABS: BASOPHILS # (AUTO) 0.1 10^3/uL (0.0-0.1); BASOPHILS % (AUTO) 2.6 %; EOSINOPHILS # (AUTO) 0.2 10^3/uL (0.0-0.7); EOSINOPHILS % (AUTO) 4.7 %; HCT - HEMATOCRIT 38.5 % (42.0-52.0); HGB - HEMOGLOBIN 12.7 g/dL (14.0-18.0); LYMPHOCYTES % (AUTO) 19.6 %; MEAN CORPUSCULAR HEMOGLOBIN 34.8 pg (27.0-31.0); MEAN CORPUSCULAR HGB CONC 33.1 g/dL (32.0-36.0); MEAN PLATELET VOLUME 9.1 fL (7.4-11.4); MONOCYTES # (AUTO) 0.5 10^3/uL (0.0-1.0); NEUTROPHILS # (AUTO) 3.1 10^3/uL (1.5-6.6); NEUTROPHILS % (AUTO) 62.1 %; RED BLOOD COUNT 3.66 10^6/uL (4.70-6.10); RED CELL DISTRIBUTION WIDTH 16.5 % (12.0-15.0)
[2017-08-02 20:09] LABS: ALBUMIN/GLOBULIN RATIO 0.8 (1.0-2.2); CALCIUM 9.1 mg/dL (8.5-10.3); CREATININE 3.6 mg/dL (0.6-1.2); POTASSIUM 2.8 mmol/L (3.5-5.0); TOTAL PROTEIN 7.1 g/dL (6.7-8.2)
--- NOTE | 2017-08-02 20:44 | CT Preliminary Report ---
Exam: CT Abdomen/Pelvis W/O IMPRESSION: 1. Moderate cardiomegaly. 2. Small bilateral pleural effusions. 3. Acute mild compression fracture L4 without retropulsed bone fragments, unchanged since 08/01/2017 CT lumbar spine. 4. Old avulsion fracture right greater trochanter. Moderate right hip effusion. 5. Subacute right sixth rib, right 12th rib, and right sacral alar fractures. 6. Moderate ascites. 7. Colonic diverticulosis. 8. Moderate anasarca. 9. Mild bilateral renal atrophy. No obstructive uropathy. 10. Numerous nonspecific shotty mesenteric and retroperitoneal lymph nodes. 11. Appendix not seen. [facility] SITE ID: [id number]
[2017-08-02 20:48] LABS: BILIRUBIN,URINE NEGATIVE (NEGATIVE)
[2017-08-02 20:51] LABS: UA CHARGE (STRIP ONLY) YES; UR CULTURE IF IND NOT INDICATED
--- NOTE | 2017-08-02 20:59 | CT Report ---
EXAM: CT ABDOMEN AND PELVIS EXAM DATE: 08/02/2017 08:07 p.m.. CLINICAL HISTORY: Abdominal pain, bloating, back pain for several days. Injury in May,. COMPARISONS: CT lumbar spine 08/01/2017. AP pelvis and right hip 05/14/2017. TECHNIQUE: Routine helical CT imaging was performed through the abdomen and pelvis. IV contrast: None . Enteric contrast: No. Reconstructions: Coronal and sagittal. In accordance with CT protocol optimization, one or more of the following dose reduction techniques w ere utilized for this exam: automated exposure control, adjustment of mA and/or KV based on patient s ize, or use of iterative reconstructive technique. FINDINGS: Lung Bases: Moderate cardiomegaly. Sternotomy. Small bilateral pleural effusions. Liver: Small caliber. Gallbladder/Bile Ducts: Cholecystectomy. No biliary duct dilatation. Spleen: Normal. Pancreas: Normal. Adrenal Glands: Normal. Kidneys: Mild bilateral renal atrophy without hydronephrosis. Peritoneal Cavity/Bowel: Moderate ascites. No free air. Extensive shoddy retroperitoneal and mesenteric adenopathy. Mild diffuse mesenteric madisyn a. Diverticuli off the colon. Large and small bowel of normal caliber. Appendix not visualized. Pelvic Organs: Normal. The bladder and visualized pelvic organs are within normal limits. Vasculature: No aneurysms or other significant abnormality. Bones: Subacute fractures of the right 6th and 12th ribs. Subacute fracture extending vertically through the right sacral alar. Acute or subacute mild compression fracture, superior endplate, of L4, as described on the CT study y esterday. Moderate right hip effusion. Old displaced avulsion fracture, right greater trochanter. Multilevel marked degenerative changes throughout the mildly scoliotic spine. Other: Moderate anasarca. IMPRESSION: 1. Moderate cardiomegaly. 2. Small bilateral pleural effusions. 3. Acute mild compression fracture of L4 without retropulsed bone fragments, unchanged since 08/01/[address] lumbar spine. 4. Old avulsion fracture of right greater trochanter. Moderate right hip effusion. 5. Subacute right 6th rib, right 12th rib, and right sacral alar fractures. 6. Moderate ascites. 7. Colonic diverticulosis. 8. Moderate anasarca. 9. Mild bilateral renal atrophy. No obstructive uropathy. 10. Numerous nonspecific shotty mesenteric and retroperitoneal lymph nodes. 11. Appendix not seen. [facility] Referring Provider Line: [phone] SITE ID: [id number]
[2017-08-02] MEDS ORDERED: CIPROFLOXACIN 250 MG TABLET PO STA (21:25)
[2017-08-02] MEDS ORDERED: POTASSIUM BICARB 25 MEQ TABLET PO STA (21:28)
[2017-08-02] MEDS ORDERED: CIPROFLOXACIN 250 MG TABLET PO ONE (21:36)
[2017-08-02] MEDS ORDERED: POTASSIUM BICARB 25 MEQ TABLET PO ONE (21:36)
--- NOTE | 2017-08-02 22:06 | ED Physician Documentation ---
ED Addendum - Addendum Addendum: 08/02/17 22:06 another unscheduled return visit - chart accessed for follow up and educational purposes
== END 2017-08-02 21:58 | disposition home or self-care (01) ==
LOC: ED 18:19
DX: R60.1 Generalized edema (principal); E87.6 Hypokalemia; R52 Pain, unspecified; I12.0 Hypertensive chronic kidney disease with stage 5 chronic kidney disease or end stage renal disease; E11.22 Type 2 diabetes mellitus with diabetic chronic kidney disease; N18.6 End stage renal disease; Z79.4 Long term (current) use of insulin; F03.90 Unspecified dementia, unspecified severity, without behavioral disturbance, psychotic disturbance, mood disturbance, and anxiety; Z87.891 Personal history of nicotine dependence; Z96.659 Presence of unspecified artificial knee joint; Z95.1 Presence of aortocoronary bypass graft; Z95.4 Presence of other heart-valve replacement
CPT/HCPCS: 36415; 74176; 80053; 81003; 83690; 85025; 99283; 99284; A9270; 81001; 87086